=== PATIENT | female | born 1950 | race Caucasian/White ===

== ENCOUNTER 2018-05-03 15:34 | Outpatient (CLI) | payer MEDICARE, OTHER, SELFPAY ==
[2018-05-03 16:41] LABS: TSH (W/Ref FT4) 2.05 uIU/mL (0.358-3.74)
== END 2018-05-03 15:54 ==
DX: R94.6 Abnormal results of thyroid function studies (principal)
CPT/HCPCS: 36415; 84443

== ENCOUNTER 2018-12-28 00:48 | Outpatient (CLI) | payer MEDICARE, OTHER, SELFPAY ==
--- NOTE | 2018-12-28 07:30 | DI.MAMMO_ITS ---
SYMPTOM/DIAGNOSIS: SCREENING, Z12.31 MAMMOGRAMS: Mammograms were interpreted according to the usual protocol including computer analysis with CAD system, tomosynthesis and C view imaging. Comparison is made with prior examinations. Breast density, Category C. There is an asymmetric density in the posterior central left breast seen on the craniocaudad view. This area should be further evaluated with a spot compression view. No other suspicious masses or microcalcifications are seen. There is a biopsy clip again seen in the right breast. CONCLUSION: Additional views of the left breast as described above. Category 0. MQSA ASSESSMENT OF FINDINGS: Incomplete: Needs additional imaging evaluation. Category 0. Patient will receive a letter notifying them of these results. Bi-RADS category C. The breasts are heterogeneously dense, which may obscure small masses.
[2018-12-28 08:51] LABS: ALT 22 U/L (12-78); AST 16 U/L (15-37); Albumin 3.6 g/dL (3.4-5.0); Alkaline Phosphatase 68 U/L (46-116); Anion Gap 8.9 mmol/L (3-11); BUN 18 mg/dL (7-18); Bilirubin, Total 0.2 mg/dL (0.2-1.0); CO2 27.1 mmol/L (21.0-32.0); CREATININE 0.78 mg/dL (0.55-1.02); Calcium 8.9 mg/dL (8.5-10.1); Chloride 102 mmol/L (98-107); Glucose 90 mg/dL (70-100); Potassium 4.3 mmol/L (3.5-5.1); Sodium 138 mmol/L (136-145); TSH (W/Ref FT4) 3.32 uIU/mL (0.358-3.74); Total Protein 6.8 g/dL (6.4-8.2)
== END 2018-12-28 01:08 ==
DX: F32.9 Major depressive disorder, single episode, unspecified (principal); G47.30 Sleep apnea, unspecified; R03.0 Elevated blood-pressure reading, without diagnosis of hypertension; R79.89 Other specified abnormal findings of blood chemistry; Z12.31 Encounter for screening mammogram for malignant neoplasm of breast; R92.8 Other abnormal and inconclusive findings on diagnostic imaging of breast
CPT/HCPCS: 36415; 77063; 77067; 80053; 84443

== ENCOUNTER 2019-01-03 00:43 | Outpatient (CLI) | payer MEDICARE, OTHER, SELFPAY ==
--- NOTE | 2019-01-03 14:35 | DI.MAMMO_ITS ---
SYMPTOM/DIAGNOSIS: F/U MAMMO, ASYMMETRIC DENSITY LT BREAST LEFT BREAST ADDITIONAL VIEWS: Additional images are interpreted according to the usual protocol including tomosynthesis and 2D imaging. CC spot compression view with tomography was performed for question of a nodular asymmetry in the posterior left breast. No persistent abnormality is seen. The findings are consistent with overlying fibroglandular tissue. IMPRESSION: Category 1, negative mammogram. Yearly screening mammography is recommended. SA ASSESSMENT OF FINDINGS: Negative. Category 1. Patient will receive a letter notifying them of these results. Bi-RADS category C. The breasts are heterogeneously dense, which may obscure small masses.
== END 2019-01-03 01:03 ==
DX: Z12.31 Encounter for screening mammogram for malignant neoplasm of breast (principal); R92.8 Other abnormal and inconclusive findings on diagnostic imaging of breast; N64.59 Other signs and symptoms in breast
CPT/HCPCS: 77063; 77067

== ENCOUNTER 2020-01-24 02:09 | Outpatient (CLI) | payer MEDICARE, OTHER, SELFPAY ==
--- NOTE | 2020-01-24 08:15 | DI.US_ITS ---
EXAM: US SOFT TISSUE EXTREMITY CLINICAL HISTORY: evaluate fluid lt wrist, synovial cyst lt wrist, M71.332, R22.9 TECHNIQUE: Ultrasound performed using standard protocol. COMPARISON: US RIGHT BREAST ULTRASOUND from 08/24/2012 FINDINGS: Ultrasound examination of the left wrist was performed to evaluate the extensor region distal to the carpus. There is a palpable abnormality of the extensor surface of the hand which corresponds to an elongated fluid collection which appears to be associated with the extensor digitorum tendons lateral ly. This measures up to about 14 x 5 by 5 millimeters in diameter. No discrete underlying tendinous abnormality seen. IMPRESSION: Fluid collection which appears to be associated with extensor digitorum tendons, most prominent at wh at appears to be the 4th ray. MR correlation may be obtained if clinically appropriate. DATA REPOSITORY:
== END 2020-01-24 02:29 ==
PROVIDERS: Visit Provider Nurse Practitioner Family
DX: M25.532 Pain in left wrist (principal); M71.332 Other bursal cyst, left wrist; M65.842 Other synovitis and tenosynovitis, left hand
CPT/HCPCS: 76881

== ENCOUNTER 2020-03-07 19:01 | Emergency (ER) | payer MEDICARE, OTHER, SELFPAY ==
[2020-03-07 19:06] VITALS: BP 142/85; PULSE 76; RESP 16; TEMP 37.1; O2SAT 99
--- NOTE | 2020-03-07 19:27 | DI.RAD_ITS ---
EXAM: XR HEEL RT OS CALCIS CLINICAL HISTORY: puncture metallic foriegn body, pain TECHNIQUE: COMPARISON: CR LEFT ANKLE COMPLETE from 07/30/2013 FINDINGS: Two views were obtained. No fracture or foreign body is seen. IMPRESSION:
--- NOTE | 2020-03-07 19:33 | DI.VRAD_ITS ---
PROCEDURE INFORMATION: Exam: XR Right Calcaneus Exam date and time: 03/07/2020 7:24 PM Age: 69 years old Clinical indication: Pain; Heel; Right; Patient HX: Stepped on something sharp TECHNIQUE: Imaging protocol: XR of the Right calcaneus. Views: 2 or more views. COMPARISON: CR RIGHT FOOT COMPLETE 05/30/2016 6:17 PM FINDINGS: Bones/joints: No fracture. Hindfoot alignment is normal. No ankle joint effusion. Soft tissues: No foreign body. Soft tissue bandaging over the plantar heel pad noted. IMPRESSION: No fracture or foreign body. Dictated and Authenticated by: Wallace Green MD. Ordering:JOSE MANUEL Rivers MD
--- NOTE | 2020-03-07 20:17 | ED.GENADUL_ITS ---
Discharge Plan Disposition Patient Disposition: HOME Condition: Stable Discharge Details Chief Complaint: Laceration Clinical Impression: Puncture wound of foot, right Primary Care Provider: Rose Carvajal ED Provider: Silvestre Gimenez Home Meds and New Rx's Prescriptions: Continued cetirizine 10 mg tablet 10 mg PO DAILY Qty: 90 RF: 4 metronidazole [MetroLotion] 0.75 % lotion 1 applic Topical DAILY Qty: 59 RF: 1 hydrochlorothiazide 12.5 mg tablet 12.5 mg PO DAILY Qty: 90 RF: 3 Tumeric with black pepper See Rx Instructions .ROUTE .COMPLEX RF: 0 acetaminophen 500 MG tablet 1,000 mg PO DAILY PRNRF: 0 ascorbic acid (vitamin C) 500 MG tablet 500 mg PO BID RF: 0 ibuprofen 200 MG tablet 400 mg PO QID PRNRF: 0 garlic 1 EACH capsule 1 ea PO BID RF: 0 calcium carbonate-vitamin D3 [Calcium 600 + D(3)] 1 EACH tablet 1 ea PO BID RF: 0 GLUCOSAMINE \T\ CHONDROITIN CAP 1 EACH capsule 1 ea PO BID RF: 0 multivitamin [One Daily Multivitamin] 1 EACH tablet 1 ea PO DAILY RF: 0 albuterol sulfate [ProAir HFA] 8.5 GM HFA aerosol inhaler 2 puff Inhalation Q6H PRN PRNQty: 1 RF: 1 citalopram [Celexa] 20 mg tablet 30 mg PO DAILY Qty: 135 RF: 3 Discharge Instructions Instructions: Puncture Wound (ED) Additional Instructions: Please follow-up with podiatry if pain persists after tomorrow. Return to the ER for any worsening or new concerning symptoms. Referrals: Favio Rodriguez DPM [[facility] STAFF PHYSICIAN] - Discharge Data Discharge Date/Time-TO BE ENTERED AT DEPARTURE: 03/07/20 20:30 Medical Decision Making 72-year-old female here with puncture wound to right heel, concern for foreign body. Wound was anesthetized with topical let. X-ray of the right ankle interpreted by radiology: No evidence for acute bony injury, cannot confidently rule out foreign body with bandage overlying skin. I do not see a foreign body on the x-ray. Bedside [id number] ultrasound performed by me to examine soft tissue for foreign body. No hyperechoic foreign body present in soft tissue. Suspect puncture wound without foreign body. Plan for outpatient follow-up with podiatry if pain persists. Usual and customary discharge instructions were provided the patient. HPI General Mode of arrival: ambulatory . Date/Time Provider Initiated Documentation: 03/07/20 19:08 . Limitations to Documentation: no limitations . Information obtained by: patient . HPI Narrative: 69-year-old female presents with chief complaint of foot pain. Patient notes left heel pain that started about 30 minutes prior to arrival. She notes she was walking around her house barefoot and thinks she stepped on a metal splinter as there had recently been metal work done in the area. Pain is mild to moderate with any pressure on her heel. No other injury. Related Data Home Medications Medication Instructions Recorded Confirmed Glucosamine \T\ Chondroitin Cap 1 ea PO BID 06/28/13 03/08/20 acetaminophen 1,000 mg PO DAILY PRN tab-cap 06/28/13 03/08/20 ascorbic acid (vitamin C) 500 mg PO BID 06/28/13 03/08/20 calcium carbonate-vitamin D3 1 ea PO BID tab.chew 06/28/13 03/08/20 [Calcium 600 + D(3)] garlic 1 ea PO BID 06/28/13 03/08/20 ibuprofen 400 mg PO QID PRN tab-cap 06/28/13 03/08/20 multivitamin [One Daily 1 ea PO DAILY 09/26/15 03/08/20 Multivitamin] albuterol sulfate [ProAir HFA] 2 puff INHALATION Q6H PRN PRN #1 05/20/17 03/08/20 inhaler cetirizine 10 mg tablet 10 mg PO DAILY #90 tab-cap 12/06/18 03/08/20 metronidazole 0.75 % lotion 1 applic TOPICAL DAILY #59 ml 12/06/18 03/08/20 hydrochlorothiazide 12.5 mg tablet 12.5 mg PO DAILY #90 tab 05/24/19 03/08/20 citalopram 20 mg tablet 30 mg PO DAILY #135 tab-cap 11/06/19 03/08/20 Tumeric with black pepper See Rx Instructions .ROUTE .COMPLEX 01/17/20 03/08/20 Previous Rx's Medication Instructions Recorded cetirizine 10 mg tablet 10 mg PO DAILY #90 tab-cap 12/06/18 metronidazole 0.75 % lotion 1 applic TOPICAL DAILY #59 ml 12/06/18 hydrochlorothiazide 12.5 mg tablet 12.5 mg PO DAILY #90 tab 05/24/19 citalopram 20 mg tablet 30 mg PO DAILY #135 tab-cap 11/06/19 Allergies Allergy/AdvReac Type Severity Reaction Status Date / Time No Known Allergies Allergy Verified 03/07/20 20:22 General Stated Complaint: Laceration BELINDA: 4 Review of Systems Integumentary/Breasts Skin/Breast: Reports as per [facility] Social History Smoking/Tobacco Use Status: Never Alcohol Intake: current Alcohol Intake frequency: holidays/special occasions only Alcohol type: beer, wine and hard liquor Drug use: Never Substance use type: does not use Caregiver/Support person: No Household members: spouse Housing: house Communication Needs: Corrective Lenses Do you need help understanding health information?: Rarely Pets and animals: Yes Pets and animals: dog(s) Sexually active: No Do you think of yourself as: straight/heterosexual Current gender identity: female What is your relationship status?: How often do you talk on the phone with friends or family?: twice per week How often do you get together with friends or relatives?: twice per week How often do you attend baptist or synagogue services?: 4 or more times per year Do you belong to any clubs or organized social groups?: yes Panel score (0-1 are the most socially isolated patients): 4 What type of physical activity do you participate in: other Duration: decline to answer Frequency: decline to answer Shirley/Congregation: Muslim Special shirley needs: No Seatbelt use: always Drive intox or ride w/intox local company tanker driver: No Do you feel safe at home: Yes Do you feel safe in your relationship?: Yes Exam Const General: cooperative and no acute distress Skin Wounds: wounds noted (tiny puncture wound left heel with no swelling or erthema) Extrem General: no edema Left lower extremity: foot (see skin exam) Details: toes with normal ROM Course Vital Signs Vital signs: Vital Signs Temperature 37.1 C 03/07/20 19:06 Pulse 76 03/07/20 19:06 Respiratory Rate 16 03/07/20 19:06 Blood Pressure 142/85 H 03/07/20 19:06 Pulse Oximetry 99 07/16/20 19:06 Temperature 37.1 C 07/16/20 19:06 Temperature Source Tympanic 03/07/20 19:06 Pulse 76 03/07/20 19:06 Respiratory Rate 16 03/07/20 19:06 Respiratory Effort 03/07/20 19:12 Blood Pressure 142/85 H 03/07/20 19:06 Blood Pressure Position Sitting 03/07/20 19:06 Pulse Oximetry 99 03/07/20 19:06 Oxygen Delivery Method Room Air 03/07/20 19:06 Oxygen Flow Rate 0 03/07/20 19:06
== END 2020-03-07 20:30 | disposition home or self-care (01) ==
PROVIDERS: Emergency Provider Student in an Organized Health Care Education/Training Program
DX: S91.332A Puncture wound without foreign body, left foot, initial encounter (principal); W45.8XXA Other foreign body or object entering through skin, initial encounter
CPT/HCPCS: 99283; 73650; 99284

== ENCOUNTER 2020-03-11 01:44 | Outpatient (CLI) | payer MEDICARE, OTHER, SELFPAY ==
--- NOTE | 2020-03-11 07:30 | DI.RAD_ITS ---
EXAM: XR FINGER LT LITTLE EXAM DATE/TIME: CLINICAL HISTORY: pain and swelling DIP joint,M25.40,R60.9. TECHNIQUE: 2D digital imaging was performed. COMPARISON: None. FINDINGS: BONES: There is a comminuted intra-articular fracture involving the head of the middle phalanx of the left little finger. There is depression of the lateral fracture fragment. No bony destructive lesi on is seen. JOINTS: No dislocation is present. SOFT TISSUE: There is soft tissue swelling of the left little finger. IMPRESSION: Comminuted, depressed intra-articular fracture of the head of the middle phalanx of the left little f nehal. DATA REPOSITORY: RADIATION DOSE DELIVERED:
--- NOTE | 2020-03-11 07:30 | DI.RAD_ITS ---
EXAM: XR FINGER LT RING EXAM DATE/TIME: CLINICAL HISTORY: PAIN, SWELLING DIP JOINT, M25.40,R60.9. TECHNIQUE: 2D digital imaging was performed. COMPARISON: None. FINDINGS: BONES: There is a short curvilinear density seen at the ulnar aspect of the distal phalanx of the lef t ring finger which may represent a small avulsed fracture fragment. No bony destructive lesion is s een. JOINTS: No dislocation is present. SOFT TISSUE: Mild soft tissue swelling of the left ring finger. IMPRESSION: Curvilinear density adjacent to the ulnar aspect of the distal phalanx of the left ring finger which may represent a small avulsed fracture fragment. Please correlate clinically. DATA REPOSITORY: RADIATION DOSE DELIVERED:
== END 2020-03-11 02:04 ==
PROVIDERS: Visit Provider Nurse Practitioner Family
DX: M25.40 Effusion, unspecified joint (principal); R60.9 Edema, unspecified; S62.627A Displaced fracture of middle phalanx of left little finger, initial encounter for closed fracture; R93.6 Abnormal findings on diagnostic imaging of limbs; X58.XXXA Exposure to other specified factors, initial encounter
CPT/HCPCS: 73140

== ENCOUNTER → 2020-04-26 09:18 | Outpatient (BNVA) | payer MEDICARE, OTHER, SELFPAY | PROVIDERS: Visit Provider Student in an Organized Health Care Education/Training Program | DX: S62.627A Displaced fracture of middle phalanx of left little finger, initial encounter for closed fracture (principal); X58.XXXA Exposure to other specified factors, initial encounter; M67.432 Ganglion, left wrist; G56.02 Carpal tunnel syndrome, left upper limb; I10 Essential (primary) hypertension | CPT/HCPCS: 99203; 99214 ==

== ENCOUNTER 2020-05-06 03:04 | Outpatient (CLI) | payer MEDICARE, OTHER, SELFPAY ==
[2020-05-06 09:37] LABS: ALT 17 U/L (14-59); AST 14 U/L (15-37); Albumin 3.4 g/dL (3.4-5.0); Alkaline Phosphatase 60 U/L (46-116); Anion Gap 9.4 mmol/L (3-11); BUN 23 mg/dL (7-18); Bilirubin, Total 0.1 mg/dL (0.2-1.0); CO2 27.6 mmol/L (21.0-32.0); CREATININE 0.85 mg/dL (0.55-1.02); Calcium 8.7 mg/dL (8.5-10.1); Calculated LDL 148 mg/dL (<100); Chloride 103 mmol/L (98-107); Cholesterol 210 mg/dL (<200); Glucose 97 mg/dL (74-106); HDL Cholesterol 40 mg/dL (40-60); Potassium 4.1 mmol/L (3.5-5.1); Sodium 140 mmol/L (136-145); Total Protein 6.3 g/dL (6.4-8.2); Triglyceride 114 mg/dL (<150)
== END 2020-05-06 03:24 ==
DX: I10 Essential (primary) hypertension (principal); E78.00 Pure hypercholesterolemia, unspecified; K21.9 Gastro-esophageal reflux disease without esophagitis; F32.9 Major depressive disorder, single episode, unspecified; G47.30 Sleep apnea, unspecified
CPT/HCPCS: 36415; 80053; 80061

== ENCOUNTER 2020-05-14 21:31 | Outpatient (REF) | payer MEDICARE, OTHER, SELFPAY | END 2020-05-14 21:51 | LOC: LBN 21:31 | PROVIDERS: Visit Provider Physician Assistant | DX: N39.0 Urinary tract infection, site not specified (principal) | CPT/HCPCS: 87077; 87086; 87186 ==

== ENCOUNTER 2020-07-15 05:57 | Outpatient (REF) | payer MEDICARE, OTHER, SELFPAY ==
[2020-07-18 07:50] LABS: Patient Race White; SARS-CoV-2 RNA Undetected (Undetected); SARS-CoV-2 Specimen Source Nasal
== END 2020-07-15 06:17 ==
LOC: NCHCN 05:57
PROVIDERS: Visit Provider Nurse Practitioner Family
DX: Z11.59 Encounter for screening for other viral diseases (principal)
CPT/HCPCS: U0003

== ENCOUNTER 2020-08-02 21:23 | Outpatient (REF) | payer MEDICARE, OTHER, SELFPAY | END 2020-08-02 21:43 | LOC: LBN 21:23 | PROVIDERS: Visit Provider Nurse Practitioner Family | DX: N39.0 Urinary tract infection, site not specified (principal) | CPT/HCPCS: 87077; 87086; 87186 ==

== ENCOUNTER 2021-05-13 01:24 | Outpatient (CLI) | payer MEDICARE, OTHER, SELFPAY ==
[2021-05-13 09:33] LABS: ALT 25 U/L (14-59); AST 11 U/L (15-37); Albumin 3.6 g/dL (3.4-5.0); Alkaline Phosphatase 63 U/L (46-116); Anion Gap 9.4 mmol/L (3-11); BUN 18 mg/dL (7-18); Bilirubin, Total 0.3 mg/dL (0.2-1.0); CO2 28.6 mmol/L (21.0-32.0); CREATININE 0.7 mg/dL (0.55-1.02); Calcium 8.7 mg/dL (8.5-10.1); Calculated LDL 151 mg/dL (<100); Chloride 101 mmol/L (98-107); Cholesterol 214 mg/dL (<200); Glucose 85 mg/dL (74-106); HDL Cholesterol 46 mg/dL (40-60); Sodium 139 mmol/L (136-145); Total Protein 6.7 g/dL (6.4-8.2); Triglyceride 87 mg/dL (<150)
== END 2021-05-13 01:25 | disposition home or self-care (01) ==
LOC: LBO 01:24
DX: I10 Essential (primary) hypertension (principal); E78.00 Pure hypercholesterolemia, unspecified
CPT/HCPCS: 36415; 80053; 80061

== ENCOUNTER 2021-05-27 02:36 | Outpatient (CLI) | payer MEDICARE, OTHER, SELFPAY ==
--- NOTE | 2021-05-27 06:30 | DI.RAD_ITS ---
Exam(s) XR KNEE RT 3V AP,LAT,PARRISH EXAM: XR KNEE RT 3V AP,LAT,PARRISH CLINICAL HISTORY: knee pain, right with mild edema,. TECHNIQUE: 2D digital imaging was performed of the right knee. Three views obtained. AP, lateral an d PA tunnel views were obtained. COMPARISON: No exams were available for comparison FINDINGS: BONES: No acute fracture is present. No bony destructive lesion is seen. JOINTS: The knee is normally aligned. No joint effusion is seen. Small osteophytes at the posterior p atella. SOFT TISSUE: Normal. IMPRESSION: Mild degenerative changes at the patellofemoral joint. DATA REPOSITORY: RADIATION DOSE DELIVERED:
== END 2021-05-27 02:56 ==
DX: M25.561 Pain in right knee (principal); M17.11 Unilateral primary osteoarthritis, right knee
CPT/HCPCS: 73562

== ENCOUNTER 2022-06-24 09:51 | Outpatient (REF) | payer MEDICARE, OTHER, SELFPAY ==
[2022-06-24 11:29] LABS: C Diff PCR Negative (Negative)
[2022-06-24 23:32] LABS: Campylobacter PCR Negative (Negative); Salmonella PCR Negative (Negative); Shiga Toxin PCR Negative (Negative); Shigella/Enteroinvasive Ecoli Negative (Negative)
--- OUTSIDE RECORDS SUMMARY | 2022-06-30 09:59 | XMS_ITS | Encounter Summary ---
:1950 Author Organization [facility] [place] [address] Care Team Providers Name Role Phone Hodan Hunt Primary Care Provider Encounter Details Date Type Department Care Team Description 02/05/2011 Orders Only [facility] [facility] MD Prashant (Primary Dx) [facility] [address] [place] GENERAL SURGERY [id number] [place] [address] [phone] Social History Tobacco Use Types Packs/Day Years Used Date Never Assessed Sex Assigned at Date Recorded Not on file documented as of this encounter Plan of Treatment Not on filedocumented as of this encounter Visit Diagnoses Diagnosis Breast fibroadenoma - Primary Benign neoplasm of breast documented in this encounter Care Teams Knitter Wire Mesh Relationship Specialty Start Date End Date Hodan Hunt PA PCP - General 08/20/10 04/06/11 documented as of this encounter
--- OUTSIDE RECORDS SUMMARY | 2022-06-30 09:59 | XMS_ITS | Encounter Summary ---
:1950 Author Organization [facility] Address [place] [id number] Care Team Providers Name Role Phone Jeri Bolivar MD Primary Care Provider Reason for Visit Reason Comments Obstructive Sleep Apnea Encounter Details Date Type Department Care Team Description 11/10/2011 Office Visit Sleep Medicine ODETTE Kee on CPAP (Primary [facility] Denisse Aleman APRN Dx) [place] [id number] PSYCHIATRY DEPT. [place] [id number] Social History Tobacco Use Types Packs/Day Years Used Date Never Smoker Sex Assigned at Date Recorded Not on file documented as of this encounter Last Filed Vital Signs Vital Sign Reading Time Taken Comments Blood Pressure 118/78 11/10/2011 9:50 AM EDT Pulse 71 11/10/2011 9:50 AM EDT Temperature - - Respiratory Rate - - Oxygen Saturation - - Inhaled Oxygen Concentration - - Weight 71.2 kg (157 lb) 11/10/2011 9:50 AM EDT Height 156.8 cm (5' 1.75) 11/10/2011 9:50 AM EDT Body Mass Index 28.95 11/10/2011 9:50 AM EDT documented in this encounter Progress Notes Denisse Kee APRN - 11/10/2011 10:32 AM EDT Report of Outpatient Follow up: History of Present Illness: A 61-year-old female with a history of moderate degree of obstructive sleep apnea (AHI of 40.1) diagnosed by polysomnogram on 05/31/2009. CPAP titration revealed pressures of 12 and 14 produced overallrespiratory stability. Her respiratory pattern was noted to have some decreased stability in non REMversus REM. At the last pressure studied, 14 cm H2O, she was seen mostly in REM with only a few minutes of non REM. Respiratory pattern appeared good in both, although slightly worse in non REM. She was supine for most of the study. She was last seen in June 2010, at which time she was refit for aQuattro FFM, size XS. CPap pressure was reset to an auto-range of 14-18cm H2o. She phoned in July 2011, at which time her AHI had worsened since her last appt. She opted, though, to maintain her pressure 'as is'. Pt presents today for a routine f/up; she is appreciating the comfort of the FFM, no longer has to set up a sock system to enhance fit, though is using a white T-shirt template. Her continues to express satisfaction since she is using CPAP, no longer snoring while using her mask/machine. On the other hand, he has noted occasional episodes of apnea while she is using her machine. In general, she feels refreshed upon awakening and notes good daytime energy through the bulk of herworkweek. Nasal congestion not an issue, denies excess dry mouth. She is no longer experiencing aerophagia/gas- no longer needing to use Beano twice daily. 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 Current Compliance Download (covers 05/14/11- 11/09/11) indicates: AHI= 5.4 , avg daily use= 6'36, avg vibratory snore index= 0.8, avg leak= 47.9. Today's [place] Score is 9/24, indicating min-mod daytime sleepiness. She strongly asserts that she is safe behind the wheel- this is greatly improved. Current Sleep Habitus: Typically to bed around 11p, she will FFM, then will get into bed in supine position. She is asleep promptly, then sleeps right thru the night. She awakens at 6 a, generally feels refreshed. Physical Examination: Pt is a 61 y.o. female , avg ht, current weight is 157 lbs, indicating no change in her weight over the past year. Pt is pleasant, coop and in NAD. ACTIVE PROBLEM LIST ODETTE Assessment: Pt Continues to do quite well with her CPap, though her pressure needs vary at times; I believe thatthis has contributed to the slightly higher AHI and her subjective sense of mild sleepiness at times. As a result will increase her auto-range pressure to 14-19cm H2o at this time, will RTC 1 yr/PRN. ICSD diagnosis (code): 327.23 Provisional: Final: Obstructive sleep apnea Recommendations: 1. CPap at __ cm H2O with/without ramp, and heated humidifier 2. Reviewed driving safety; pt is encouraged to tube puller and nap if feeling unsafe behind the wheelat any time. 3. RTC documented in this encounter Plan of Treatment Not on filedocumented as of this encounter Visit Diagnoses Diagnosis ODETTE on CPAP - Primary Obstructive sleep apnea (adult) (pediatr ic) documented in this encounter Care Teams Smasher Hand Relationship Specialty Start Date End Date Jeri Bolivar MD PCP - General 04/07/11 [address] [place] [address] documented as of this encounter
--- OUTSIDE RECORDS SUMMARY | 2022-06-30 09:59 | XMS_ITS | Encounter Summary ---
:1950 Author Organization [facility] Address [address] [place] [id number] Care Team Providers Name Role Phone Unavailable Primary Care Provider Unavailable Encounter Details Date Type Department Care Team Description 06/24/2022 Lab Requisition [facility] Outr Resulting Lab, Pathology & Laboratory Provider [facility] [address] [place] [address] Social History Tobacco Use Types Packs/Day Years Used Date Smoking Tobacco: Never Assessed Sex Assigned at Date Recorded Not on file documented as of this encounter Plan of Treatment Not on filedocumented as of this encounter Procedures Procedure Name Priority Date/Time Associated Diagnosis Comme nts FECAL BACTERIAL Routine 06/24/2022 9:50 EDT Resul ts for this PATHOGENS BY PCR procedure a re in the results section. OVA/PARASITE EXAM Routine 06/24/2022 9:50 EDT Res ults for this procedure are i n the results section. documented in this encounter Results FECAL BACTERIAL PATHOGENS BY PCR (06/24/2022 9:50 EDT) [facility] Method Time Signature Salmonella PCR Negative Negative 06/24/2022 [facility] MEDICAL 23:26 EDT CENTER LABORATORY SERVICES Shigella/Enteroin Negative Negative 06/24/2022 [facility] vasive E. coli 23:26 EDT CENTER LABORATORY SERVICES HN LAB Negative Negative 06/24/2022 [facility] PCR 23:26 EDT CENTER LABORATORY SERVICES Shiga Toxin PCR Negative Negative 06/24/2022 [facility] MEDICAL 23:26 EDT CENTER LABORATORY SERVICES Specimen Anatomical Collection Method Collection Time Receive d Time (Source) Location / / Volume Laterality Feces SPECIMEN FROM 06/24/2022 9:50 06/24/2022 [facility] / Unknown EDT 16:13 EDT Provider Outr Resulting Lab MICROBIOLOGY - GENERAL ORD ERABLES Performing Organization Address City/State/ZIP Code Phon e Number [facility] [address] [place] [address] SERVICES OVA/PARASITE EXAM (06/24/2022 9:50 EDT) [facility] Method Time Signature Parasite No ova and 06/25/2022 [facility] MEDICAL parasites 13:07 EDT CENTER seen. LABORATORY SERVICES Specimen Anatomical Collection Method Collection Time Receive d Time (Source) Location / / Volume Laterality Feces SPECIMEN FROM 06/24/2022 9:50 06/24/2022 [facility] / Unknown EDT 16:13 EDT Narrative [facility] SERVICES - 06/25/2022 13:07 EDT (If Cryptosporidium, Cyclospora, or Micr osporidium are suspected, specific tests must be requested.) Single negative specimen does not rule out the possibility of a parasitic infection. Provider Outr Resulting Lab MICROBIOLOGY - GENERAL ORD ERABLES Performing Organization Address City/State/ZIP Code Phon e Number [facility] [address] [place] [address] SERVICES documented in this encounter Visit Diagnoses Not on filedocumented in this encounter
--- OUTSIDE RECORDS SUMMARY | 2022-06-30 09:59 | XMS_ITS | Clinical Summary ---
:1950 Author Organization [facility] Address [address] [place] [address] Care Team Providers Name Role Phone Unavailable Primary Care Provider Unavailable Encounters Date Type Specialty Care Team Description 06/24/2022 Lab Requisition Clinical Laboratory Outr Resulting Lab , Provider from Last 3 Months Social History Tobacco Use Types Packs/Day Years Used Date Smoking Tobacco: Never Assessed Sex Assigned at Date Recorded Not on file Plan of Treatment Health Maintenance Due Date Last Done Comments Hepatitis C Screen 1950 COVID-19 Vaccine (#1) 02/19/1951 Fall Risk Screening 2017 Procedures Procedure Name Priority Date/Time Associated Diagnosis Comme nts FECAL BACTERIAL Routine 06/24/2022 9:50 EDT Resul ts for this PATHOGENS BY PCR procedure a re in the results section. OVA/PARASITE EXAM Routine 06/24/2022 9:50 EDT Res ults for this procedure are i n the results section. from Last 3 Months Results FECAL BACTERIAL PATHOGENS BY PCR (06/24/2022 9:50 EDT) [facility] Method Time Signature Salmonella PCR Negative Negative 06/24/2022 [facility] MEDICAL 23:26 EDT CENTER LABORATORY SERVICES Shigella/Enteroin Negative Negative 06/24/[address] [facility] vasive E. coli 23:26 EDT CENTER LABORATORY SERVICES HN LAB Negative Negative 06/24/[address] [facility] PCR 23:26 EDT CENTER LABORATORY SERVICES Shiga Toxin PCR Negative Negative 06/24/2022 [facility] MEDICAL 23:26 EDT CENTER LABORATORY SERVICES Specimen Anatomical Collection Method Collection Time Receive d Time (Source) Location / / Volume Laterality Feces SPECIMEN FROM 06/24/2022 9:50 06/24/2022 [facility] / Unknown EDT 16:13 EDT Provider Outr Resulting Lab MICROBIOLOGY - GENERAL ORD ERABLES Performing Organization Address City/State/ZIP Code Phon e Number [facility] [address] [place] [address] SERVICES OVA/PARASITE EXAM (06/24/2022 9:50 EDT) [facility] Method Time Signature Parasite No ova and 06/25/2022 [facility] MEDICAL parasites 13:07 EDT CENTER seen. LABORATORY SERVICES Specimen Anatomical Collection Method Collection Time Receive d Time (Source) Location / / Volume Laterality Feces SPECIMEN FROM 06/24/2022 9:50 06/24/2022 [facility] / Unknown EDT 16:13 EDT Narrative [facility] SERVICES - 06/25/2022 13:07 EDT (If Cryptosporidium, Cyclospora, or Micr osporidium are suspected, specific tests must be requested.) Single negative specimen does not rule out the possibility of a parasitic infection. Provider Outr Resulting Lab MICROBIOLOGY - GENERAL ORD ERABLES Performing Organization Address City/State/ZIP Code Phon e Number [facility] [address] [place] [address] SERVICES from Last 3 Months
--- OUTSIDE RECORDS SUMMARY | 2022-06-30 09:59 | XMS_ITS | Encounter Summary ---
:1950 Author Organization [facility] [place] [address] Care Team Providers Name Role Phone Hodan Hunt Primary Care Provider Encounter Details Date Type Department Care Team Description 04/01/2011 Orders Only Radiology Merle Figueroa, Lump or mass in breast; [facility] Abnormal [place] [address] DIAGNOSTIC RADIOLOGY [phone] [place], [place] [address] (Wo rk) Social History Tobacco Use Types Packs/Day Years Used Date Never Assessed Sex Assigned at Date Recorded Not on file documented as of this encounter Plan of Treatment Not on filedocumented as of this encounter Results Mammo direct digital unilateral (04/07/2011 12:12 PM EDT) Anatomical Region Laterality Modality Breast N/A Mammography Specimen (Source) Anatomical Collection Method Collection Time Re ceived Time Location / / Volume Laterality 04/07/2011 12:12 PM EDT Impressions 04/10/2011 9:24 AM EDT Impression: concordant Recommendation: Follow-up US in one year . ??Dr. Figueroa notified Ms. Martinez of results as I was out of town. Dr. Raman Daigle performed the procedure ; I (Dr. Banuelos) observed and also performed one biopsy and clip placement. Film and interpretation reviewed by the attending Narrative 04/10/2011 9:24 AM EDT ULTRASOUND GUIDED BIOPSY OF THE RIGHT BR EAST ON 04/07/11: Informed consent was obtained, sterile t echnique and 1% lidocaine used for local anesthesia and ultrasound guidance used throughout the procedure. ?? Clinical indication: Right breast 11mm m ass in the upper, outer quadrant at 0930, 1cm from the nipple. 14-gauge Achieve device 4 core biopsy specimens obtained. ??The mass appeared to decrease/resolve with biopsies. ?? A 17-gauge Ultracore (US) [place] marker c lip was placed. Cranio-caudal and lateral digital mammography performed to determine biopsy marker placement, which was shown to be at the biopsy site . Satisfactory sampling was obtained. There were no procedural complications. Imaging diagnosis: Cyst versus papilloma versus, less likely, mucinous carcinoma. Pathologic diagnosis: Cyst Procedure Note Bobby Banuelos MD - 04/10/2011Format ting of this note might be different from the original. ULTRASOUND GUIDED BIOPSY OF THE RIGHT BR EAST ON 04/07/11: Informed consent was obtained, sterile t echnique and 1% lidocaine used for local anesthesia and ultrasound guidance used throughout the procedure. Clinical indication: Right breast 11mm m ass in the upper, outer quadrant at 0930, 1cm from the nipple. 14-gauge Achieve device 4 core biopsy specimens obtained. The ma ss appeared to decrease/resolve with biopsies. A 17-gauge Ultracore (US) [place] marker c lip was placed. Cranio-caudal and lateral digital mammography performed to determine biopsy marker placement, which was shown to be at the biopsy site . Satisfactory sampling was obtained. There were no procedural complications. Imaging diagnosis: Cyst versus papilloma versus, less likely, mucinous carcinoma. Pathologic diagnosis: Cyst IMPRESSION Impression: concordant Recommendation: Follow-up US in one year . Dr. Figueroa notified Ms. Martinez of results as I was out of town. Dr. Raman Daigle performed the procedure ; I (Dr. Banuelos) observed and also performed one biopsy and clip placement. Film and interpretation reviewed by the attending Merle Figueroa MD IMG MAMMO ORDERABLES Mammo- US biopsy (04/07/2011 12:09 PM EDT) Anatomical Region Laterality Modality Breast N/A Mammography Specimen (Source) Anatomical Collection Method Collection Time Re ceived Time Location / / Volume Laterality 04/07/2011 12:09 PM EDT Impressions 04/10/2011 9:24 AM EDT Impression: concordant Recommendation: Follow-up US in one year . ??Dr. Figueroa notified Ms. Martinez of results as I was out of town. Dr. Raman Daigle performed the procedure ; I (Dr. Banuelos) observed and also performed one biopsy and clip placement. Film and interpretation reviewed by the attending Narrative 04/10/2011 9:24 AM EDT ULTRASOUND GUIDED BIOPSY OF THE RIGHT BR EAST ON 04/07/11: Informed consent was obtained, sterile t echnique and 1% lidocaine used for local anesthesia and ultrasound guidance used throughout the procedure. ?? Clinical indication: Right breast 11mm m ass in the upper, outer quadrant at 0930, 1cm from the nipple. 14-gauge Achieve device 4 core biopsy specimens obtained. ??The mass appeared to decrease/resolve with biopsies. ?? A 17-gauge Ultracore (US) [place] marker c lip was placed. Cranio-caudal and lateral digital mammography performed to determine biopsy marker placement, which was shown to be at the biopsy site . Satisfactory sampling was obtained. There were no procedural complications. Imaging diagnosis: Cyst versus papilloma versus, less likely, mucinous carcinoma. Pathologic diagnosis: Cyst Procedure Note Bobby Banuelos MD - 04/10/2011Format ting of this note might be different from the original. ULTRASOUND GUIDED BIOPSY OF THE RIGHT BR EAST ON 04/07/11: Informed consent was obtained, sterile t echnique and 1% lidocaine used for local anesthesia and ultrasound guidance used throughout the procedure. Clinical indication: Right breast 11mm m ass in the upper, outer quadrant at 0930, 1cm from the nipple. 14-gauge Achieve device 4 core biopsy specimens obtained. The ma ss appeared to decrease/resolve with biopsies. A 17-gauge Ultracore (US) [place] marker c lip was placed. Cranio-caudal and lateral digital mammography performed to determine biopsy marker placement, which was shown to be at the biopsy site . Satisfactory sampling was obtained. There were no procedural complications. Imaging diagnosis: Cyst versus papilloma versus, less likely, mucinous carcinoma. Pathologic diagnosis: Cyst IMPRESSION Impression: concordant Recommendation: Follow-up US in one year . Dr. Figueroa notified Ms. Martinez of results as I was out of town. Dr. Raman Daigle performed the procedure ; I (Dr. Banuelos) observed and also performed one biopsy and clip placement. Film and interpretation reviewed by the attending Merle Figueroa MD IMG MAMMO ORDERABLES documented in this encounter Visit Diagnoses Diagnosis Lump or mass in breast Abnormal ultrasound of breast Other (abnormal) findings on radiologica l examination of breast Lump or mass in breast Abnormal ultrasound of breast Other (abnormal) findings on radiologica l examination of breast Lump or mass in breast Abnormal ultrasound of breast Other (abnormal) findings on radiologica l examination of breast documented in this encounter Care Teams Gusset Folder Relationship Specialty Start Date End Date Hodan Hunt PA PCP - General 08/20/10 04/06/11 documented as of this encounter
--- OUTSIDE RECORDS SUMMARY | 2022-06-30 09:59 | XMS_ITS | Clinical Summary ---
:1950 Author Organization [facility] [place] [address] Care Team Providers Name Role Phone Jeri Bolivar MD Primary Care Provider Allergies Active Allergy Reactions Severity Noted Date Comments Pollen Extracts Medium CIS - Allerg ic Rhinitis Pollen, Micronized Medium CIS - All ergic Rhinitis Pollen,Fermented Medium CIS - Aller gic Rhinitis Medications Medication Sig Dispensed Refills Start Date End Date Status citalopram (CELEXA) 20 0 11/11/2010 Active mg tablet cetirizine (ZYRTEC) 10 10MG, PO, Once 0 11/11/2010 Active mg tablet daily GLUCOSAMINE HCL/CHONDRO 0 11/11/2010 Active BALLARD A (GLUCOSAMINE-CHONDROITIN ORAL) ASCORBIC ACID (VITAMIN C 0 11/11/2010 Active ORAL) metroNIDAZOLE 0 11/11/2010 Activ e (METROCREAM) 0.75 % cream Calcium 500 mg Tab 0 11/11/2010 Active omeprazole (PRILOSEC) 20 0 11/11/2010 Active mg capsule VITAMIN B COMPLEX (B 0 11/11/2010 Active COMPLEX VITAMINS ORAL) Coenzyme Q10 (CO Q-10) 0 11/11/2010 Active 200 mg Cap multivitamin (THERAGRAN) 0 11/11/2010 Active tablet Immunizations Name Administration Dates Next Due Influenza Vaccine, Whole 08/20/2010, 06/25/2005 Td, adult 11/06/2003 Tuberculin Skin Test, PPD 05/31/2012, 05/18/2012, 02/05/2003 Social History Tobacco Use Types Packs/Day Years Used Date Never Smoker Sex Assigned at Date Recorded Not on file Last Filed Vital Signs Vital Sign Reading [...] Mass Index 28.95 11/10/2011 9:50 AM EDT Plan of Treatment Health Maintenance Due Date Last Done Comments Covid-19 Vaccine (#1) 02/19/1951 Hepatitis C Screening 1970 Tdap adult 1971 Breast Cancer Share Decision Needed 1992 Breast Cancer screening 2002 Zoster vaccine (1 of 2) 2002 Advance Directive 2007 Tetanus vaccine 11/05/2013 11/06/2003 Colonoscopy 01/14/2015 01/14/2005 (See prior EHR) Bone Density Scan 2017 Pneumoccocal Vaccine: 65+ (1 - PCV) 2017 Influenza (Flu) vaccine (1 of 1 - 04/23/2022 08/20/2010, Influenza standard series) Care Teams Ward Assistant Relationship Specialty Start Date End Date Jeri Bolivar MD PCP - General 04/07/11 [address] [place], [place] [address]
--- OUTSIDE RECORDS SUMMARY | 2022-06-30 09:59 | XMS_ITS | Encounter Summary ---
:1950 Author Organization [facility] [place] [address] Care Team Providers Name Role Phone Jeri Bolivar MD Primary Care Provider Reason for Visit Reason Onset Date Comments Other 08/04/2011 Encounter Details Date Type Department Care Team Description 08/04/2011 Telephone Sleep Medicine Denisse Kee, Other [facility] [place] [address] [facility] [phone] PSYCHIATRY DEPT. [place] [phone] (Wo rk) Social History Tobacco Use Types Packs/Day Years Used Date Never Assessed Sex Assigned at Date Recorded Not on file documented as of this encounter Miscellaneous Notes Telephone Encounter - Denisse Kee APRN - 09/01/2011 12:38 PM EST Can you call the [facility] Medical office to ask them to RE-fax her compliance download? Apparently they did this on 08/04/11, but I haven't seen it yet. Forwarding this request to Leah again, since she took the call from Carina, but if anyone else is more appropriate, feel free to pawn the task off on someone else (other than myself! Benny) thanks Telephone Encounter - Merle Unger - 09/01/2011 9:49 AM EST Doing better with new mask and thinks pressure is okay. She had download faxed too. Does she need tokeep next tue appt? documented in this encounter Plan of Treatment Not on filedocumented as of this encounter Visit Diagnoses Not on filedocumented in this encounter Care Teams Passenger Vessel Chef Relationship Specialty Start Date End Date Jeri Bolivar MD PCP - General 04/07/11 [address] [place] [address] documented as of this encounter
--- OUTSIDE RECORDS SUMMARY | 2022-06-30 09:59 | XMS_ITS | Encounter Summary ---
:1950 Author Organization [facility] [place] [address] Care Team Providers Name Role Phone Hodan Hunt Primary Care Provider Encounter Details Date Type Department Care Team Description 03/17/2011 Orders Only [facility] MD Prashant Dx) [facility] [place] [address] GENERAL SURGERY [phone] [place] [id number] Social History Tobacco Use Types Packs/Day Years Used Date Never Assessed Sex Assigned at Date Recorded Not on file documented as of this encounter Plan of Treatment Not on filedocumented as of this encounter Procedures Procedure Name Priority Date/Time Associated Diagnosis Comme nts MAMMO BREAST US Routine 04/01/2011 2:00 PM Breast cancer Resul ts for this LIMITED EDT procedure are i n the results section. documented in this encounter Results Mammo breast US unilateral bilateral (04/01/2011 2:00 PM EDT) Anatomical Region Laterality Modality Breast N/A Mammography Specimen (Source) Anatomical Collection Method Collection Time Re ceived Time Location / / Volume Laterality 04/01/2011 2:00 PM EDT Narrative 04/01/2011 4:04 PM EDT DIAGNOSTIC VIEWS OF THE RIGHT BREAST AND RIGHT BREAST ULTRASOUND ON 04/01/11: DIAGNOSTIC IMAGING SUMMARY: RIGHT BREAST LESION 1: SUSPICIOUS (BIRAD S Category 4A-low concern for malignancy). Finding: Hypoechoic mass. Size: 13mm. Location: 0900 position, 1-2cm from the nipple. Recommendation: Tissue diagnosis as disc ussed with the patient by Dr. Figueroa at the time of the exam. This has been sche duled for 04/07/11 at 10:50am. Differential diagnosis: Intraductal kalie lloma versus fibroadenoma or, less likely, fat lobule. Preliminary report E-mailed to Dr. Rebeca Wheat on 04/01/11. NARRATIVE: CLINICAL INDICATION: Patient with ongoin g nipple discharge. TECHNIQUE: CC, MLO, spot compression CC and ML views were obtained with direct digital capture as well as a Right breas t ultrasound. FINDINGS: Diagnostic views demonstrate a stable heterogeneously dense fibroglandular tissue pattern with no co ncerning masses, distortion or worrisome calcifications. Ultrasound was performed throughout the retroareolar region revealing no dilated ducts. At the 2462-1897 position , 1-2cm from the nipple is a persistent hypoechoic, well circumscribed mass.. On prior imaging it sometimes appeared like a fat lobule and other times blende d into tissue. On today's imaging it appears better circumscribed and has enl arged with a maximum dimension of 13mm. Upon careful scanning there is the sugge stion that it may be connected to the duct system; however, there is no training intern al vascularity. There is a hyperechoic well defined rim representing the duct w all or pseudocapsule. There is neutral through transmission. The mass is parall el in orientation and well circumscribed. Procedure Note Merle Figueroa MD - 04/01/2011Format ting of this note might be different from the original. DIAGNOSTIC VIEWS OF THE RIGHT BREAST AND RIGHT BREAST ULTRASOUND ON 04/01/11: DIAGNOSTIC IMAGING SUMMARY: RIGHT BREAST LESION 1: SUSPICIOUS (BIRAD S Category 4A-low concern for malignancy). Finding: Hypoechoic mass. Size: 13mm. Location: 0900 position, 1-2cm from the nipple. Recommendation: Tissue diagnosis as disc ussed with the patient by Dr. Figueroa at the time of the exam. This has been sche duled for 04/07/11 at 10:50am. Differential diagnosis: Intraductal kalie lloma versus fibroadenoma or, less likely, fat lobule. Preliminary report E-mailed to Dr. Rebeca Wheat on 04/01/11. NARRATIVE: CLINICAL INDICATION: Patient with ongoin g nipple discharge. TECHNIQUE: CC, MLO, spot compression CC and ML views were obtained with direct digital capture as well as a Right breas t ultrasound. FINDINGS: Diagnostic views demonstrate a stable heterogeneously dense fibroglandular tissue pattern with no co ncerning masses, distortion or worrisome calcifications. Ultrasound was performed throughout the retroareolar region revealing no dilated ducts. At the 9807-4349 position , 1-2cm from the nipple is a persistent hypoechoic, well circumscribed mass.. On prior imaging it sometimes appeared like a fat lobule and other times blende d into tissue. On today's imaging it appears better circumscribed and has enl arged with a maximum dimension of 13mm. Upon careful scanning there is the sugge stion that it may be connected to the duct system; however, there is no training intern al vascularity. There is a hyperechoic well defined rim representing the duct w all or pseudocapsule. There is neutral through transmission. The mass is parall el in orientation and well circumscribed. Peter Wheat MD IMG MAMMO ORDERABLES documented in this encounter Visit Diagnoses Diagnosis Breast cancer - Primary Malignant neoplasm of breast (female), u nspecified site documented in this encounter Care Teams Barber Shop Manager Relationship Specialty Start Date End Date Hodan Hunt PA PCP - General 08/20/10 04/06/11 documented as of this encounter
--- OUTSIDE RECORDS SUMMARY | 2022-06-30 09:59 | XMS_ITS | Encounter Summary ---
:1950 Author Organization [facility] [place] [address] Care Team Providers Name Role Phone Hodan Hunt Primary Care Provider Encounter Details Date Type Department Care Team Description 09/03/2010 Follow-Up Hematology and Oncol shelby at [facility] [place] [address] Social History Tobacco Use Types Packs/Day Years Used Date Never Assessed Sex Assigned at Date Recorded Not on file documented as of this encounter Plan of Treatment Not on filedocumented as of this encounter Visit Diagnoses Not on filedocumented in this encounter Care Teams Communications And Signals Supervisor Relationship Specialty Start Date End Date Hodan Hunt PA PCP - General 08/20/10 04/06/11 documented as of this encounter
--- OUTSIDE RECORDS SUMMARY | 2022-06-30 09:59 | XMS_ITS | Encounter Summary ---
:1950 Author Organization [facility] [address] Care Team Providers Name Role Phone Hodan Hunt Primary Care Provider Encounter Details Date Type Department Care Team Description 09/03/2010 Procedure [place] [address] Social History Tobacco Use Types Packs/Day Years Used Date Never Assessed Sex Assigned at Date Recorded Not on file documented as of this encounter Plan of Treatment Not on filedocumented as of this encounter Visit Diagnoses Not on filedocumented in this encounter Care Teams Auto Radiator Specialist Relationship Specialty Start Date End Date Hodan Hunt PA PCP - General 08/20/10 04/06/11 documented as of this encounter
--- OUTSIDE RECORDS SUMMARY | 2022-06-30 09:59 | XMS_ITS | Encounter Summary ---
:1950 Author Organization [facility] [place] [address] Care Team Providers Name Role Phone Jeri Bolivar MD Primary Care Provider Encounter Details Date Type Department Care Team Description 04/07/2011 Orders Only Radiology Bobby Banuelos MD [facility] [place] [address] DIAGNOSTIC RADIOLOGY [phone] [place] [phone] (Wo rk) Social History Tobacco Use Types Packs/Day Years Used Date Never Assessed Sex Assigned at Date Recorded Not on file documented as of this encounter Progress Notes Bobby Banuelos MD - 04/07/2011 10:11 AM EDT Procedure date: done today Procedure type: right Breast US guided biopsy Special Instructions: none Allergies: Pollen extracts, Pollen,fermented and Pollen,micronized Medications: has a current medication list which includes celexa, zyrtec, glucosamine hcl/chondro sua, ascorbate calcium, metrocream, calcium, omeprazole, vitamin b complex, co q-10, and multivitamin. Anticoagulation status: none Imaging reviewed and procedural plan approved by Dr. BOBBY BANUELOS documented in this encounter Plan of Treatment Not on filedocumented as of this encounter Visit Diagnoses Not on filedocumented in this encounter Care Teams Boiling House Hand Relationship Specialty Start Date End Date Jeri Bolivar MD PCP - General 04/07/11 [address] [place] [address] documented as of this encounter
--- OUTSIDE RECORDS SUMMARY | 2022-06-30 09:59 | XMS_ITS | Encounter Summary ---
:1950 Author Organization [facility] [place] [address] Care Team Providers Name Role Phone Jeri Bolivar MD Primary Care Provider Encounter Details Date Type Department Care Team Description 09/07/2011 Telephone Sleep Medicine Denisse Kee, [facility] Lida rees APRN [address] [phone] PSYCHIATRY DEPT. [place] [phone] (Wo rk) Social History Tobacco Use Types Packs/Day Years Used Date Never Assessed Sex Assigned at Date Recorded Not on file documented as of this encounter Miscellaneous Notes Telephone Encounter - Denisse Kee APRN - 09/07/2011 4:54 PM EST Pt had had her CPap compliance download faxed to the [facility] sleep lab for review, in anticipation of her scheduled appt on 09/08/11; Although we had arranged a phone consult at 4:45p, she was unavailable to speak, so a VM was provided. Pt's AHI has worsened to 4.9 events/hour; She seems to be showing less air leakage from her mask, and her vibratory snore has improved. I do not know if her aerophagia has improved- if she is feeling well on the current pressure range of 14-18, then we could conceivably leave her at this auto-range, given her history of air intolerance in the past. Otherwise, we might consider increasing the high endof her pressure range, as 90% of her respiratory apneas/arousals seem to be taken care of at a pressure of 17.2cm H2o. I suggested that patient either attend tomorrow's appt to discuss in person, or asked her to phone to cancel, and we will discuss more fully over the telephone. documented in this encounter Plan of Treatment Not on filedocumented as of this encounter Visit Diagnoses Not on filedocumented in this encounter Care Teams Braille Operator Relationship Specialty Start Date End Date Jeri Bolivar MD PCP - General 04/07/11 [address] [place] [address] documented as of this encounter
--- OUTSIDE RECORDS SUMMARY | 2022-06-30 09:59 | XMS_ITS | Encounter Summary ---
:1950 Author Organization [facility] [address] Care Team Providers Name Role Phone Hodan Hunt Primary Care Provider Encounter Details Date Type Department Care Team Description 09/03/2010 Hospital Encounter Occupational Medicine at [facility] [place] [place] [address] GENERAL SURGERY [place] [address] (Wo rk) Social History Tobacco Use Types Packs/Day Years Used Date Never Assessed Sex Assigned at Date Recorded Not on file documented as of this encounter Plan of Treatment Not on filedocumented as of this encounter Visit Diagnoses Not on filedocumented in this encounter Care Teams [employer] Business Manager Relationship Specialty Start Date End Date Hodan Hunt PA PCP - General 08/20/10 04/06/11 documented as of this encounter
--- OUTSIDE RECORDS SUMMARY | 2022-06-30 09:59 | XMS_ITS | Encounter Summary ---
:1950 Author Organization [facility] [place] [address] Care Team Providers Name Role Phone Hodan Hunt Primary Care Provider Encounter Details Date Type Department Care Team Description 04/01/2011 Hospital Encounter Mammography at [facility] [place] [address] Social History Tobacco Use Types Packs/Day Years Used Date Never Assessed Sex Assigned at Date Recorded Not on file documented as of this encounter Medications at Time of Discharge Medication Sig Dispensed Refills Start Date End Date citalopram (CELEXA) 20 mg 0 11/11/2010 tablet cetirizine (ZYRTEC) 10 mg 10MG, PO, Once 0 2010 tablet daily GLUCOSAMINE HCL/CHONDRO BALLARD A 0 011 (GLUCOSAMINE-CHONDROITIN ORAL) ASCORBIC ACID (VITAMIN C 0 11/11/2010 ORAL) metroNIDAZOLE (METROCREAM) 0 1 0.75 % cream Calcium 500 mg Tab 0 11/11/2010 omeprazole (PRILOSEC) 20 mg 0 11/12/19 11 capsule VITAMIN B COMPLEX (B COMPLEX 0 011 VITAMINS ORAL) Coenzyme Q10 (CO Q-10) 200 0 1 mg Cap multivitamin (THERAGRAN) 0 11/11/2010 tablet documented as of this encounter Plan of Treatment Not on filedocumented as of this encounter Procedures Procedure Name Priority Date/Time Associated Comments Diagnosis MAMMO DIRECT DIGITAL Routine 04/01/2011 1:56 PM R esults for this UNILATERAL EDT procedure are i n the results section. documented in this encounter Results MAMMO DIRECT DIGITAL UNILATERAL (04/01/2011 1:56 PM EDT) Anatomical Region Laterality Modality Breast N/A Mammography Specimen (Source) Anatomical Collection Method Collection Time Re ceived Time Location / / Volume Laterality 04/01/2011 1:56 PM EDT Narrative 04/01/2011 4:04 PM EDT [...] region revealing no dilated ducts. At the 7099-9691 position , 1-2cm from the nipple is [...] the duct system; however, there is no electrical intern al vascularity. There is a hyperechoic [...] region revealing no dilated ducts. At the 6656-5142 position , 1-2cm from the nipple is [...] the duct system; however, there is no electrical intern al vascularity. There is a hyperechoic well defined rim representing the duct w all or pseudocapsule. There is neutral through transmission. The mass is parall el in orientation and well circumscribed. Peter Wheat MD IMG MAMMO ORDERABLES documented in this encounter Visit Diagnoses Not on filedocumented in this encounter Care Teams Trim Machine Adjuster Relationship Specialty Start Date End Date Hodan Hunt PA PCP - General 08/20/10 04/06/11 documented as of this encounter
--- OUTSIDE RECORDS SUMMARY | 2022-06-30 09:59 | XMS_ITS | Encounter Summary ---
:1950 Author Organization [facility] [address] Care Team Providers Name Role Phone Jeri Bolivar MD Primary Care Provider Encounter Details Date Type Department Care Team Description 04/07/2011 Hospital Encounter Mammography at [facility], DR MAYS Lump or mass in breast; [facility] Peter Wheat MD [facility] [place] [address] Abnormal [place] [address] Social History Tobacco Use Types Packs/Day Years [...] 11/11/2010 tablet documented as of this encounter Miscellaneous Notes Miscellaneous - Provider, Scanning - 05/01/2011 12:24 PM EDT Miscellaneous - Provider, Scanning - 05/01/2011 12:20 PM EDT documented in this encounter Plan of Treatment Not on filedocumented as of this encounter Procedures Procedure Name Priority Date/Time Associated Diagnosis Comme nts MAMMO US BIOPSY Routine 04/07/2011 12:09 PM Lump or mass in Re sults for this BILATERAL EDT breast procedure are in Abnormal ultrasound the resu lts of breast section. documented in this encounter Results Mammo- US biopsy (04/07/2011 12:09 PM EDT) [...] with biopsies. ?? A 17-gauge Ultracore (US) [place] marker c lip was placed. Cranio-caudal and [...] decrease/resolve with biopsies. A 17-gauge Ultracore (US) [place] marker c lip was placed. Cranio-caudal and [...] Film and interpretation reviewed by the attending Merel Figueroa MD IMG MAMMO ORDERABLES documented in this encounter Visit Diagnoses Diagnosis Lump or mass in breast Abnormal ultrasound of breast Other (abnormal) findings on radiologica l examination of breast documented in this encounter Care Teams Brick Mason Relationship Specialty Start Date End Date Jeri Bolivar MD PCP - General 04/07/11 [address] [place] [address] documented as of this encounter
--- OUTSIDE RECORDS SUMMARY | 2022-06-30 09:59 | XMS_ITS | Encounter Summary ---
:1950 Author Organization [facility] [place] [address] Care Team Providers Name Role Phone Hodan Hunt Primary Care Provider Encounter Details Date Type Department Care Team Description 04/01/2011 Hospital Encounter Mammography at [facility], DR DAVON [facility] Peter Hay MD [facility] [place] [address] [place] [address] Social History Tobacco Use Types Packs/Day [...] on filedocumented in this encounter Care Teams Piano Machine Operator Relationship Specialty Start Date End Date Hodan Hunt PA PCP - General 08/20/10 04/06/11 documented as of this encounter
--- OUTSIDE RECORDS SUMMARY | 2022-06-30 09:59 | XMS_ITS | Encounter Summary ---
:1950 Author Organization [facility] Address [facility] [place] [address] Care Team Providers Name Role Phone Jeri Bolivar MD Primary Care Provider Encounter Details Date Type Department Care Team Description 04/07/2011 Hospital Encounter Mammography [place] [facility] Lump or mass in breast; [facility] Abnormal [place] [address] Social History Tobacco Use Types Packs/Day [...] Procedure Name Priority Date/Time Associated Comments Diagnosis SURGICAL PATHOLOGY Routine 04/07/2011 12:43 PM Re sults for this REPORT EDT procedure are i n the results section. MAMMO DIRECT DIGITAL Routine 04/07/2011 12:12 PM Lump or mass in Results for this UNILATERAL EDT breast procedure are in Abnormal ultrasound the resu lts of breast section. documented in this encounter Results SURGICAL PATHOLOGY REPORT (04/07/2011 12:43 PM EDT) Component Value Ref Test Analysis Performed At [facility] Range Method Time Signature Surgical CERNER Pathology ? [facility] Report ? Provider: ?? BOBBY BANUELOS ?? Pt. Name: ?? JODIE MARTINEZ ? Acc #: ?[id number] ?Pt. MRN: ?[id number] ? Col Date: ?? 04/07/2011 ? /Sex: ?1 ,(60 ? years),Female ? Rec Date: ?? 04/07/2011 ? LOC: ?3S ? SURGICAL PATHOLOGY ? ---Pathologic Diagnosis--- ? Needle biopsies: ?Right breast. ? Diagnosis: ?Benign breast tissue with portions of cyst wall. ? Microcalcifications: ??N/A. ? CR-0 ? 04/08/11 ? ALVARO ? 04/08/11 Verified by: ? Aleksandar Booker MD ? Pathologist ? (Electronic Si gnature) ? The attending pathologist whose signature appears o n this report has ? reviewed all diagnostic slides and has edited the warren ss and/or ? microscopic portion of the report in rendering the fi nal pathologic ? diagnosis. ? ---Microscopic Description--- ? Slides reviewed, microscopic description not recorded . ? ---Gross Description--- ? Labeled/Fixative: ? Right breast, formalin. ? Qty/Size/Weight: ?Four yellow, focally h emorrhagic needle core ? biopsies, varying from 0.5 cm to 2.0 x 0.1 cm. ? Sections/Processing: ??(T1) ??aje/SHB ? ---Clinical Information--- ? Specimen Submitted: ? A - Right breast ? Clinical History/Diagnosis: ? Oval circumscribed mass. ? FA/cyst/papilloma Specimen (Source) Anatomical Collection Method Collection Time Re ceived Time Location / / Volume Laterality 04/07/2011 12:43 PM EDT Bobby Banuelos MD PATHOLOGY/CYTOLOGY ORDERABLE S Performing Organization Address City/State/[place] [address] [facility] [employer] Mammo direct digital unilateral (04/07/2011 12:12 PM [...] with biopsies. ?? A 17-gauge Ultracore (US) [place] marker c lip was placed. Cranio-caudal and [...] decrease/resolve with biopsies. A 17-gauge Ultracore (US) [place] marker c lip was placed. Cranio-caudal and [...] breast documented in this encounter Care Teams Community Mental Health Social Worker Relationship Specialty Start Date End Date Jeri Bolivar MD PCP - General 04/07/11 [address] [place] [address] documented as of this encounter
--- OUTSIDE RECORDS SUMMARY | 2022-06-30 09:59 | XMS_ITS | Encounter Summary ---
:1950 Author Organization [facility] [place] [place] [address] Care Team Providers Name Role Phone Jeri Bolivar MD Primary Care Provider Encounter Details Date Type Department Care Team Description 07/15/2010 Follow-Up Sleep Medicine AlejandroDenisse Young, [facility] Lida rees APRN [address] [phone] PS[facility]IATRY DEPT. [place] [phone] (Wo rk) Social History Tobacco Use Types Packs/Day Years Used Date Never Assessed Sex Assigned at Date Recorded Not on file documented as of this encounter Plan of Treatment Not on filedocumented as of this encounter Visit Diagnoses Not on filedocumented in this encounter Care Teams Superintendent Quarry Relationship Specialty Start Date End Date Jeri Bolivar MD PCP - General 07/15/10 08/19/10 [address] [place] [address] documented as of this encounter
--- OUTSIDE RECORDS SUMMARY | 2022-06-30 09:59 | XMS_ITS | Encounter Summary ---
:1950 Author Organization [facility] [place] [address] Care Team Providers Name Role Phone Hodan Hunt Primary Care Provider Encounter Details Date Type Department Care Team Description 08/20/2010 Office Visit General Surgery at [facility] Merle Ann, [facility] [place] [address] [facility] [phone] GENERAL SURGERY [place] [address] (Wo rk) Social History Tobacco Use Types Packs/Day Years Used Date Never Assessed Sex Assigned at Date Recorded Not on file documented as of this encounter Plan of Treatment Not on filedocumented as of this encounter Visit Diagnoses Not on filedocumented in this encounter Care Teams Business Reporting Developer Relationship Specialty Start Date End Date Hodan Hunt PA PCP - General 08/20/10 04/06/11 documented as of this encounter
--- OUTSIDE RECORDS SUMMARY | 2022-06-30 09:59 | XMS_ITS | Encounter Summary ---
:1950 Author Organization [facility] [place] [address] Care Team Providers Name Role Phone Hodan Hunt Primary Care Provider Encounter Details Date Type Department Care Team Description 04/01/2011 Orders Only Radiology Merle Figueroa MD [facility] [place] [phone] DIAGNOSTIC RADIOLOGY [phone] [place] [address] (Wo rk) Social History Tobacco Use Types Packs/Day Years Used Date Never Assessed Sex Assigned at Date Recorded Not on file documented as of this encounter Plan of Treatment Not on filedocumented as of this encounter Visit Diagnoses Not on filedocumented in this encounter Care Teams Clinical Operations Specialist Relationship Specialty Start Date End Date Hodan Hunt PA PCP - General 08/20/10 04/06/11 documented as of this encounter
== END 2022-06-24 09:52 | disposition home or self-care (01) ==
LOC: LBN 09:51
PROVIDERS: PCP Nurse Practitioner Family; Visit Provider Physician Assistant
DX: R19.7 Diarrhea, unspecified (principal)
CPT/HCPCS: 87493; 87505; 87177

== ENCOUNTER → 2022-07-31 00:59 | Outpatient (CLI) | payer MEDICARE, SELFPAY ==
--- NOTE | 2022-07-31 14:22 | DI.DEXA_ITS ---
Exam(s) XR DEXA BONE DENSITY W/WO ADRIANA EXAM: XR DEXA BONE DENSITY W/WO ADRIANA CLINICAL HISTORY: Osteopenia,SCREENING FOR OSTEOPOROSIS IN POSTMENOPAUSAL WOMAN,Z78.0 TECHNIQUE: COMPARISON: Comparison examination is 01/19/2008. FINDINGS: Lateral Spine Image: Unremarkable. No compression deformities identified. Left hip: Total T-Score: -1.8. This compares to -1.1 on the prior examination. Total Z-Score: -0.3 T- and Z-scores: Findings are consistent with osteopenia. Lumbar Spine: Total T-Score: -3.0. This compares to -2.4 on the prior examination. Total Z-Score: -0.9 T- and Z-scores: Findings are consistent with osteoporosis. IMPRESSION: Findings of osteoporosis.
== END ==
PROVIDERS: PCP Nurse Practitioner Family; Visit Provider Nurse Practitioner Family
DX: M85.88 Other specified disorders of bone density and structure, other site (principal); Z78.0 Asymptomatic menopausal state; Z13.820 Encounter for screening for osteoporosis; M81.0 Age-related osteoporosis without current pathological fracture
CPT/HCPCS: 77080

== ENCOUNTER → 2022-08-20 01:45 | Outpatient (CLI) | payer MEDICARE, SELFPAY ==
--- NOTE | 2022-08-20 06:30 | DI.MAMMO_ITS ---
Exam(s) MAMMO SCREENING EXAM: MAMMO SCREENING CLINICAL HISTORY: screening,z12.39. TECHNIQUE: Bilateral full field digital CC and MLO mammographic images were obtained with 3D tomosyn thesis and utilizing computer aided detection (CAD). COMPARISON: Prior mammograms were reviewed. FINDINGS: There has been no significant change in the appearance and distribution of the fibroglandular tissue which is again noted be moderately dense, this decreasing the sensitivity of the mammogram for findin g hidden underlying lesions.. There are no new findings in the immediate vicinity of the biopsy marker clip in the right breast. Asymmetric density posteriorly in the right breast seen on the CC view is unchanged from prior mammog maddie. No new left breast findings. There is no significant architectural distortion nor skin thickening-retraction. IMPRESSION: Dense bilateral fibroglandular tissue. Stable benign-appearing findings. No obvious radiographic ev idence of malignancy. BI-RADS Category 2 - Benign Findings Breast Density - Category C - Heterogeneously dense Breast density Category C or D implies that the patient has dense breast tissue. Dense breast tissue can make it harder to find cancer on a mammogram. Dense breast tissue is also associated with an incr eased risk of breast cancer. This information about the result of the mammogram report was provided to the patient to raise their awareness. Use this report when you speak with the patient about their risks for breast cancer, which includes their family history. At that time, you may recommend additional screening tests (Ultrasoun d or MRI) as these tests may add significant information. A negative radiographic report should not delay biopsy if a dominant or clinically suspicious mass is present. Up to ten percent of cancers are not identified on mammography. A negative report may reinforce clinical impression. Adenosis and dense breasts may obscure an underlying neoplasm. False positive reports average 6 to 10%. Patient will receive a letter notifying them of these results.
== END ==
PROVIDERS: PCP Nurse Practitioner Family; Visit Provider Nurse Practitioner Family
DX: Z12.31 Encounter for screening mammogram for malignant neoplasm of breast (principal); R92.8 Other abnormal and inconclusive findings on diagnostic imaging of breast
CPT/HCPCS: 77063; 77067

== ENCOUNTER 2022-08-20 02:24 | Outpatient (CLI) | payer MEDICARE, SELFPAY ==
[2022-08-20 08:16] LABS: Hemoglobin A1C 5.9 % (<5.7)
[2022-08-20 08:40] LABS: Anion Gap 3.7 mmol/L (3-11); BUN 19 mg/dL (7-18); CO2 33.3 mmol/L (21.0-32.0); CREATININE 0.8 mg/dL (0.55-1.02); Calcium 9.2 mg/dL (8.5-10.1); Calculated LDL 154 mg/dL (<100); Chloride 102 mmol/L (98-107); Cholesterol 235 mg/dL (<200); Estimated GFR 79.71 (mL/min/1.73m2); Glucose 84 mg/dL (74-106); HDL Cholesterol 53 mg/dL (40-60); Sodium 139 mmol/L (136-145); Triglyceride 143 mg/dL (<150)
[2022-08-20 08:56] LABS: FREE T4 0.82 ng/dL (0.76-1.46)
== END 2022-08-20 02:25 | disposition home or self-care (01) ==
LOC: LBO 02:24
PROVIDERS: PCP Nurse Practitioner Family; Visit Provider Nurse Practitioner Family
DX: E78.00 Pure hypercholesterolemia, unspecified (principal); I10 Essential (primary) hypertension; R73.01 Impaired fasting glucose
CPT/HCPCS: 36415; 80048; 80061; 83036; 84439; 84443

== ENCOUNTER 2022-09-08 14:54 | Outpatient (CLI) | payer MEDICARE, SELFPAY ==
[2022-09-08 16:17] LABS: Abs Immature Grans 0.05 10^3/uL (0.0-0.06); Absolute Basophil Count 0.03 10^3/uL (0.0-0.2); Absolute Eosinophil Count 0.13 10^3/uL (0.0-0.7); Absolute Lymphocyte Count 1.32 10^3/uL (1.2-3.4); Absolute Monocyte Count 0.63 10^3/uL (0.1-0.8); Absolute Neutrophil Count 4.49 10^3/uL (1.2-6.7); Basophils % 0.5; HCT 35.3 % (36.0-46.0); HGB 11.8 g/dL (11.2-15.7); Immature Grans % 0.8; Lymphocytes % 19.8; MCH 29.6 pg (27.0-33.0); MCHC 33.4 % (32.0-36.0); MCV 89 fL (80-95); Monocytes % 9.5; Neutrophils % 67.4; Platelet Count 339 10^3/uL (130-400); RBC 3.99 10^6/uL (3.93-5.22); RDW 12.6 % (11.7-14.6); RDW-SD 40.9 fL; WBC 6.65 10^3/uL (4.4-10.8)
[2022-09-08 17:30] LABS: Ferritin 13 ng/mL (8-252); Vitamin B12 738 pg/mL (193-986)
== END 2022-09-08 14:55 | disposition home or self-care (01) ==
LOC: LBO 14:55
PROVIDERS: PCP Nurse Practitioner Family; Visit Provider Nurse Practitioner Family
DX: D64.9 Anemia, unspecified (principal); Z79.899 Other long term (current) drug therapy
CPT/HCPCS: 36415; 82607; 82728; 85025

== ENCOUNTER 2022-11-25 17:16 | Outpatient (REF) | payer MEDICARE, SELFPAY ==
[2022-11-25 21:00] LABS: Bilirubin Negative (Negative); Blood Moderate (Negative); Clarity Cloudy (Clear); Glucose Negative (Negative); Ketones Negative (Negative); Leukocyte Esterase Moderate (Negative); Nitrite Positive (Negative); Specific Gravity >= 1.030 (1.005-1.025); Urobilinogen 0.2 mg/dL (Up to 0.2); pH 5.5 (5-8)
[2022-11-25 21:09] LABS: Bacteria Many HPF (Negative); C & S Indicated? Yes; Casts Negative LPF (Negative); Crystals Negative HPF (Negative); Epithelial Cells Few HPF (Negative); Mucus Trace (Negative); WBC 20-50 HPF (0-5)
== END 2022-11-25 17:17 | disposition home or self-care (01) ==
LOC: LBN 17:16
PROVIDERS: PCP Nurse Practitioner Family; Visit Provider Nurse Practitioner Family
DX: R30.0 Dysuria (principal); R35.0 Frequency of micturition
CPT/HCPCS: 87077; 81003; 81015; 87086; 87186

== ENCOUNTER 2022-11-25 17:22 | Outpatient (CLI) | payer MEDICARE, SELFPAY ==
--- NOTE | 2022-11-25 17:30 | DI.RAD_ITS ---
Exam(s) XR FOOT RT COMPLETE EXAM: XR FOOT RT COMPLETE CLINICAL HISTORY: evaluate for fx. TECHNIQUE: 2D digital imaging was performed. COMPARISON: No exams were available for comparison FINDINGS: 3 views There is soft tissue swelling dorsally. There is a fracture of the hid-neck of the 4th metatarsal with minimal displacement. No other fractu res identified. No diastasis of the Lisfranc joint. Small calcific density seen in the soft tissues immediately adjacent to the medial aspect of the head of the great toe metatarsal. Incidentally not ed is a bipartite medial sesamoid subjacent to the great toe metatarsal head. No degenerative change s at the great toe metatarsophalangeal joint. IMPRESSION: There is a fracture at the head-neck of the 4th metatarsal. Minimal displacement. No radiopaque for eign body. DATA REPOSITORY: RADIATION DOSE DELIVERED:
--- NOTE | 2022-11-25 18:15 | DI.VRAD_ITS ---
PROCEDURE INFORMATION: Exam: XR Right Foot Exam date and time: 11/25/2022 5:49 PM Age: 72 years old Clinical indication: Other: Eval for FX TECHNIQUE: Imaging protocol: Radiologic exam of the right foot. Views: 3 or more views. Total images: 3 COMPARISON: CR RIGHT FOOT COMPLETE 05/30/2016 6:17 PM FINDINGS: Bones/joints: Acute fracture distal metadiaphysis of the 4th metatarsal without significant distraction or displacement. Mild apex medial angulation. No dislocation. Joint spaces appear normal. Soft tissues: Soft tissue swelling. No radiopaque foreign bodies. IMPRESSION: 1. Acute fracture distal metadiaphysis of the 4th metatarsal without significant distraction or displacement. Mild apex medial angulation. 2. Soft tissue swelling. Dictated and Authenticated by: Kerri Luna MD. Ordering:SHERYL Colmenares MD
== END 2022-11-25 17:42 ==
PROVIDERS: PCP Nurse Practitioner Family; Visit Provider Nurse Practitioner Family
DX: M79.671 Pain in right foot (principal); M79.89 Other specified soft tissue disorders; S92.341A Displaced fracture of fourth metatarsal bone, right foot, initial encounter for closed fracture; X58.XXXD Exposure to other specified factors, subsequent encounter
CPT/HCPCS: 73630

== ENCOUNTER 2022-11-27 11:21 | Emergency (ER) | payer MEDICARE, SELFPAY ==
[2022-11-27 11:25] VITALS: BP 137/70; PULSE 66; RESP 18; TEMP 36.9; O2SAT 100
--- NOTE | 2022-11-27 11:30 | DI.RAD_ITS ---
Exam(s) XR TIB/FIB LT XR ANKLE LT COMPLETE EXAM: XR TIB/FIB LT and XR ankle LT complete CLINICAL HISTORY: pain s.p fall. TECHNIQUE: 2D digital imaging was performed of the left ankle, tibia and fibula. Five images were ob tained. AP and lateral views were obtained. COMPARISON: CR XR ANKLE LT COMPLETE from 11/27/2022 FINDINGS: BONES: On the AP view of the tibia and fibula there appears to be a nondisplaced fracture involving t he proximal shaft of the fibula. No bony destructive lesion is seen. Visualized portion of knee and ankle joints are unremarkable. SOFT TISSUE: Normal. IMPRESSION: Nondisplaced fracture involving the proximal shaft of the left fibula. DATA REPOSITORY: RADIATION DOSE DELIVERED:
--- NOTE | 2022-11-27 11:37 | W.ED.GENAD ---
Discharge Plan Disposition Patient Disposition: Home Condition: Stable Discharge Details Clinical Impression: Left ankle sprain, Fracture of left fibula Primary Care Provider: Kathleen Brambila ED Provider: Joe Junior Home Meds and New Rx's Prescriptions: Continued melatonin 3 mg capsule 3 mg PO HS PRN cetirizine 10 mg tablet 10 mg PO DAILY PRN (Reason: allergy symptoms) Qty: 90 3RF epinephrine 0.3 mg/0.3 mL auto-injector 0.3 ml IM Q5-15M PRN (Reason: hypersensitivity reaction) Qty: 2 4RF hydrochlorothiazide 25 mg tablet 25 mg PO DAILY Qty: 90 3RF Tumeric with black pepper See Rx Instructions .ROUTE .COMPLEX Rx Instructions: per patient; omega-3 fatty acids [Fish Oil Concentrate] 1,000 mg capsule 1,000 mg PO DAILY nitrofurantoin monohyd/m-cryst [Macrobid] 100 mg capsule 100 mg PO Q12H 5 Days Qty: 10 0RF Rx Instructions: must administer with a meal/food. Take 1 pill every 12 hours x 5 days calcium carbonate-vitamin D3 [Calcium 600 + D(3)] 1 EACH tablet 1 ea PO BID multivitamin [One Daily Multivitamin] 1 EACH tablet 1 ea PO DAILY acetaminophen 500 mg tablet 500 mg PO DAILY PRN garlic Capsule See Rx Instructions PO DAILY Rx Instructions: 1 cap PO daily; citalopram [Celexa] 20 mg tablet 30 mg PO DAILY Qty: 135 0RF ascorbic acid (vitamin C) 500 mg tablet 500 mg PO DAILY PRN Rx Instructions: Uses seasonally ibuprofen 200 mg tablet 200 mg PO QID PRN ferrous sulfate 325 mg (65 mg iron) tablet 325 mg PO DAILY Qty: 90 3RF Rx Instructions: Take 1 tablet daily Discharge Instructions Additional Instructions: your xray showed a nondisplaced fibula fracture which will heal with time follow up as needed with your primary care provider if you feel more ill, have severe worsening pain or new pain such as chest pain return to the emergency department Medical Decision Making 72 yo female was walking down a small hill when she slipped and rolled her left ankle. Denies hitting her head, loc or preceding symptoms to the fall. She has mid calf tenderness and left lateral ankle pain. No head, neck, back, abdomen pain. She has no visible or palpable deformities of the ankle or leg. She has full rom of the ankle though with some pain over the lateral malleolus. Normal sensation and pulses. No visible or palpable deformity of the calf. Suspect strain, will xray to evaluate for fracture radiology questioning nondisplaced fibula fracture, no other findings. discussed results with patient, advised usually treated conservatively and weight bearing as tolerated. Offered her ortho referral, she declined and will f/u with pcp as needed. Return precautions given Differential Diagnosis Differential Diagnosis: fracture, contusion, sprain Imaging Data Radiologic Study: Attestation: I personally reviewed and interpreted this imaging study as follows: Imaging: X-Ray Radiologist's impression: no acute findings ankle xray Radiologic Study #2: Attestation: I personally reviewed and interpreted this imaging study as follows: Imaging: X-Ray Radiologist's impression: nondisplaced fibula fracture HPI General Mode of arrival: ambulatory. Date/Time Provider Initiated Documentation: 11/27/22 11:36. Limitations to Documentation: no limitations. Information obtained by: patient. History of Present Illness 72 year old F presents to the emergency department with the chief complaint of left ankle pain, described as moderate, Quality is described as aching, and is localized to the left and lower extremity. Patient reports no radiation. Patient started experiencing this hour(s) (4) and it has been constant. Rest improves symptom(s), Other factors that worsen symptoms (walking) . Patient notes no other symptoms.. Patient did receive the following treatments prior to arrival, none Related Data Home Medications Medication Instructions Recorded Confirmed calcium carbonate 600 mg-vitamin 1 ea PO BID 06/28/13 11/27/22 D3 10 mcg (400 unit) tablet (Calcium 600 + D(3)) multivitamin (One Daily 1 ea PO DAILY 09/26/15 11/27/22 Multivitamin tablet) Tumeric with black pepper See Rx Instructions .Route .COMPLEX 01/17/20 11/27/22 omega-3 fatty acids 1,000 mg 1,000 mg PO DAILY 04/26/20 11/27/22 capsule (Fish Oil Concentrate) acetaminophen 500 mg tablet 500 mg PO DAILY PRN 04/30/20 11/27/22 garlic See Rx Instructions PO DAILY 04/30/20 11/27/22 melatonin 3 mg capsule 3 mg PO HS PRN 05/05/21 11/27/22 citalopram 20 mg tablet (Celexa) 30 mg PO DAILY #135 tab-caps 05/07/22 11/27/22 ascorbic acid (vitamin C) 500 mg 500 mg PO DAILY PRN 07/27/22 11/27/22 tablet cetirizine 10 mg tablet 10 mg PO DAILY PRN allergy 07/27/22 11/27/22 symptoms #90 tab-caps epinephrine 0.3 mg/0.3 mL 0.3 ml IM Q5-15M PRN 07/27/22 11/27/22 injection, auto-injector hypersensitivity reaction #2 ea hydrochlorothiazide 25 mg tablet 25 mg PO DAILY #90 tabs 07/27/22 11/27/22 ibuprofen 200 mg tablet 200 mg PO QID PRN 07/27/22 11/27/22 ferrous sulfate 325 mg (65 mg 325 mg PO DAILY #90 tabs 09/11/22 11/27/22 iron) tablet nitrofurantoin 100 mg PO Q12H 5 days #10 caps 11/25/22 11/25/22 monohydrate/macrocrystals 100 mg capsule (Macrobid) Previous Rx's Medication Instructions Recorded citalopram 20 mg tablet (Celexa) 30 mg PO DAILY #135 tab-caps 05/07/22 cetirizine 10 mg tablet 10 mg PO DAILY PRN allergy 07/27/22 symptoms #90 tab-caps epinephrine 0.3 mg/0.3 mL 0.3 ml IM Q5-15M PRN 07/27/22 injection, auto-injector hypersensitivity reaction #2 ea hydrochlorothiazide 25 mg tablet 25 mg PO DAILY #90 tabs 07/27/22 ferrous sulfate 325 mg (65 mg 325 mg PO DAILY #90 tabs 09/11/22 iron) tablet nitrofurantoin 100 mg PO Q12H 5 days #10 caps 11/25/22 monohydrate/macrocrystals 100 mg capsule (Macrobid) Allergies Allergy/AdvReac Type Severity Reaction Status Date / Time No Known Allergies Allergy Verified 11/25/22 16:27 General Stated Complaint: Orthopedic BELINDA: 4 Review of Systems All systems reviewed & are unremarkable except as noted in HPI and below Constitutional Constitutional: Denies chills, Denies fever(s) and Denies weakness Cardiovascular Cardiovascular: Denies chest pain and Denies dyspnea Respiratory Respiratory: Denies cough and Denies dyspnea Gastrointestinal Gastrointestinal: Denies abdominal pain, Denies nausea and Denies vomiting Musculoskeletal Musculoskeletal: Denies joint swelling Neurologic Neurologic: Denies weakness PFSH All Active Problems (Updated 11/27/22 @ 12:48 by Joe Junior MD) Left ankle sprain (Acute) Fracture of left fibula (Acute) ODETTE (obstructive sleep apnea) (Chronic) CPAP Essential hypertension (Chronic) Hyperlipidemia (Chronic) Major depressive disorder, recurrent (Chronic) Chronic diarrhea (Chronic) Prediabetes (Chronic) GERD (gastroesophageal reflux disease) (Chronic) Osteoporosis (Chronic) Dexa 2021; completed 5 years of fosamax years ago Incisional hernia (Chronic) Internal hemorrhoids (Chronic) Rosacea, acne (Chronic) Carpal tunnel syndrome, left (Chronic) Ganglion cyst of finger (Chronic) Ganglion cyst of dorsum of left wrist (Chronic) Medical History Choledochal cyst Surgical History History of incisional hernia repair Status post abdominal hysterectomy Status post breast biopsy Status post cholecystectomy Status post tonsillectomy and adenoidectomy Family History Mother Heart disease Skin cancer Hypertension Father Hyperlipidemia Asthma Heart disease Depression Prostate cancer Sister Hypertension Hyperlipidemia Sister Hypothyroidism Hypertension Paternal Grandfather , 85+ GI cancer Paternal Grandmother , 40s Meningitis Maternal Grandfather Melanoma Maternal Grandmother Stroke Hypertension Skin cancer Heart disease Social History Smoking/Tobacco Use Status: Never Second Hand Exposure: Yes Smoking risk assessment performed?: Yes Alcohol Intake: current Alcohol Intake frequency: holidays/special occasions only Alcohol type: wine Drug use: Never Substance use type: does not use Caregiver/Support person: No Household members: spouse Housing: house Communication Needs: Corrective Lenses Do you need help understanding health information?: Rarely Pets and animals: Yes Pets and animals: dog(s) Sexually active: No Do you think of yourself as: straight/heterosexual What is your relationship status?: How often do you talk on the phone with friends or family?: twice per week How often do you get together with friends or relatives?: once per week How often do you attend scientology or jehovah's witness services?: 4 or more times per year Do you belong to any clubs or organized social groups?: yes Panel score (0-1 are the most socially isolated patients): 4 What type of physical activity do you participate in: other Details: exercise class Duration: 45-60 minutes/day Frequency: 1-2 times per week Shirley/Confucianist: [employer] shirley needs: No Seatbelt use: always Helmet use: No Drive intox or ride w/intox driver's license examiner: No Do you feel safe at home: Yes Do you feel safe in your relationship?: Yes Exam Const General: no acute distress Orientation: alert HENMT Head: normal to inspection Ears: external ears normal General nose exam: external nose normal Mouth: moist mucous membranes Eyes General: appearance normal, both eyes and all related structures Neck Neck: normal visual inspection Resp Effort & Inspection: normal respiratory effort and able to speak in complete sentences Cardio Rate: regular rate Skin General skin exam: no rashes or lesions noted Neuro General: patient alert and patient oriented x3 Extrem General: normal to inspection, full ROM and capillary refill normal Psych Mental Status: mental status grossly normal Course Vital Signs Vital signs: Vital Signs Temperature 36.9 C 11/27/22 11:25 Pulse 66 11/27/22 11:25 Respiratory Rate 18 11/27/22 11:25 Blood Pressure 137/70 11/27/22 11:25 Pulse Oximetry 100 11/27/22 11:25 Temperature 36.9 C 11/27/22 11:25 Temperature Source Tympanic 11/27/22 11:25 Pulse 66 11/27/22 11:25 Respiratory Rate 18 11/27/22 11:25 Blood Pressure 137/70 11/27/22 11:25 Blood Pressure Position Sitting 11/27/22 11:25 Pulse Oximetry 100 11/27/22 11:25 Oxygen Delivery Method Room Air 11/27/22 11:25 Oxygen Flow Rate 0 11/27/22 11:25 Pain Level 4 11/27/22 11:25
--- NOTE | 2022-12-07 18:05 | NUR.NOTE ---
Nursing Note: Accessed patient chart to print provider note to be faxed to [facility] for billing purposes.
== END 2022-11-27 13:00 | disposition home or self-care (01) ==
PROVIDERS: Emergency Provider Emergency Medicine; PCP Nurse Practitioner Family
DX: S82.402A Unspecified fracture of shaft of left fibula, initial encounter for closed fracture (principal); S93.402A Sprain of unspecified ligament of left ankle, initial encounter; W18.40XA Slipping, tripping and stumbling without falling, unspecified, initial encounter; X50.1XXA Overexertion from prolonged static or awkward postures, initial encounter; Y92.828 Other wilderness area as the place of occurrence of the external cause; Y93.01 Activity, walking, marching and hiking
CPT/HCPCS: 99283; 73590; 73610

== ENCOUNTER 2023-01-05 01:53 | Outpatient (CLI) | payer MEDICARE, SELFPAY ==
--- NOTE | 2023-01-05 09:21 | DI.RAD_ITS ---
Exam(s) XR FOOT RT COMPLETE EXAM: XR FOOT RT COMPLETE CLINICAL HISTORY: f/u fx,s92.341d. TECHNIQUE: 2D digital imaging was performed of the right foot. Three images were obtained. AP, obl ique and lateral views were obtained. COMPARISON: CR,XR XR FOOT RT COMPLETE from 11/25/2022 FINDINGS: BONES: There has been no change in alignment of the fracture through the neck of the right 4th metata rsal. No bony destructive lesion is seen. JOINTS: No dislocation present. SOFT TISSUE: Normal. IMPRESSION: Stable 4th metatarsal fracture. DATA REPOSITORY: RADIATION DOSE DELIVERED:
--- NOTE | 2023-01-05 09:21 | DI.RAD_ITS ---
Exam(s) XR TIB/FIB LT EXAM: XR TIB/FIB LT CLINICAL HISTORY: f/u fx,s82.402d. TECHNIQUE: 2D digital imaging was performed of the left tibia and fibula. Four images were obtained. AP and lateral views were obtained. COMPARISON: CR,XR XR FOOT RT COMPLETE from 11/25/2022 CR XR TIB/FIB LT from 11/27/2022 CR XR ANKLE LT COMPLETE from 11/27/2022 FINDINGS: BONES: There is a healing fracture which is nondisplaced in the proximal diaphysis of the left fibula again seen. At the ankle there now appears to be a nondisplaced fracture through the tip of the med ial malleolus. There is also an oblique lucency through the mid lateral aspect of the distal tibia w hich may represent a nondisplaced fracture. No bony destructive lesion is seen. Visualized portion o f knee knee is unremarkable. SOFT TISSUE: Normal. IMPRESSION: 1. Healing stable proximal left fibular fracture. 2. There does appeared now to be a nondisplaced fracture at the tip of the medial malleolus. 3. Question of a nondisplaced fracture through the lateral aspect of the distal tibia. 4. A CT scan through the left ankle is recommended for further evaluation. Unexpected findings DATA REPOSITORY: RADIATION DOSE DELIVERED:
== END 2023-01-05 02:13 ==
LOC: DI 01:53
PROVIDERS: PCP Nurse Practitioner Family; Visit Provider Family Medicine
DX: S82.402D Unspecified fracture of shaft of left fibula, subsequent encounter for closed fracture with routine healing (principal); S92.341D Displaced fracture of fourth metatarsal bone, right foot, subsequent encounter for fracture with routine healing; S82.52XA Displaced fracture of medial malleolus of left tibia, initial encounter for closed fracture; X58.XXXA Exposure to other specified factors, initial encounter
CPT/HCPCS: 73590; 73630

== ENCOUNTER 2023-02-16 01:36 | Outpatient (CLI) | payer MEDICARE, SELFPAY ==
--- NOTE | 2023-02-16 07:00 | DI.CT_ITS ---
Exam(s) CT LOWER EXTREMITY LT WO EXAM: CT LOWER EXTREMITY LT WO CLINICAL HISTORY: F/U ABNL XRAY OF TIBIA,R93.89,? NONDISPLACED FX LAT ASPECT DISTAL TIBIA. TECHNIQUE: Imaging Protocol: Axial computed tomography images with coronal and sagittal reformatted images were created and reviewed. CONTRAST MATERIAL: Intravenous: Omnipaque 350 Contrast volume:structured data in ml Contrast route:IV - COMPARISON: CR XR TIB/FIB LT from 11/27/2022 CR XR ANKLE LT COMPLETE from 11/27/2022 CR XR TIB/FIB LT from 01/05/2023 FINDINGS: Bones: Nondisplaced fracture with surrounding callus formation again noted of the proximal fibula. S ubacute appearing nondisplaced fracture is noted at the anterolateral aspect of the distal tibia at t he articular surface. There is no significant separation at the articular surface. No fractures joon ntified involving the medial malleolus as was questioned on recent plain film. A rounded bony densit y the tip of the lateral malleolus which appears old.. No cellulitic or osteomyelitic changes are i dentified. There are mild degenerative changes at the knee and ankle. The bones appear osteopenic. Soft Tissues: Normal. IMPRESSION: Nondisplaced, subacute appearing fracture at the articular aspect of the anterolateral distal tibia. Proximal fibular fracture with surrounding callus formation. RADIATION DOSE DELIVERED: 465.27mGy.cm Total DLP DATA REPOSITORY: All CT scans at this facility are submitted to the National Radiology Data Registry (NRDR) Dose Index Registry (DIR) with the [employer] (ACR). RADIATION OPTIMIZATION: All CT scans at this facility use at least one of these dose optimization te chniques: automated exposure control; mA and/or kV adjustment per patient size (includes targeted exa ms where dose is matched to clinical indication); or iterative reconstruction.
== END 2023-02-16 01:56 ==
LOC: DI 01:36
PROVIDERS: PCP Nurse Practitioner Family; Visit Provider Family Medicine
DX: X58.XXXD Exposure to other specified factors, subsequent encounter; S82.124D Nondisplaced fracture of lateral condyle of right tibia, subsequent encounter for closed fracture with routine healing
CPT/HCPCS: 73700

== ENCOUNTER 2023-06-29 01:02 | Outpatient (CLI) | payer MEDICARE, SELFPAY ==
[2023-06-29 08:11] LABS: Hemoglobin A1C 5.4 % (<5.7)
[2023-06-29 08:31] LABS: ALT 21 U/L (14-59); AST 15 U/L (15-37); Albumin 3.7 g/dL (3.4-5.0); Alkaline Phosphatase 52 U/L (46-116); Anion Gap 7.6 mmol/L (3-11); BUN 17 mg/dL (7-18); Bilirubin, Total 0.2 mg/dL (0.2-1.0); CO2 29.4 mmol/L (21.0-32.0); CREATININE 0.8 mg/dL (0.55-1.02); Calcium 9.3 mg/dL (8.5-10.1); Calculated LDL 127 mg/dL (<100); Chloride 101 mmol/L (98-107); Cholesterol 211 mg/dL (<200); Estimated GFR 79.22 (mL/min/1.73m2); Glucose 89 mg/dL (74-106); HDL Cholesterol 53 mg/dL (40-60); Potassium 3.8 mmol/L (3.5-5.1); Sodium 138 mmol/L (136-145); Total Protein 7.3 g/dL (6.4-8.2); Triglyceride 156 mg/dL (<150)
[2023-06-29 09:19] LABS: Vitamin D 25 Total 54.8 ng/mL (30-100)
[2023-06-30 10:46] LABS: Hepatitis C Ab w Rflx HCV PCR Negative (Negative)
== END 2023-06-29 01:03 | disposition home or self-care (01) ==
PROVIDERS: PCP Nurse Practitioner Family; Visit Provider Nurse Practitioner Family
DX: Z00.00 Encounter for general adult medical examination without abnormal findings (principal); E78.00 Pure hypercholesterolemia, unspecified; M81.0 Age-related osteoporosis without current pathological fracture; R73.03 Prediabetes
CPT/HCPCS: 36415; 80053; 80061; 82306; 86803; 83036; 84443

== ENCOUNTER 2023-07-29 11:33 | Outpatient (CLI) | payer MEDICARE, SELFPAY ==
[2023-07-29 12:23] LABS: HCT 37.9 % (36.0-46.0); HGB 13.2 g/dL (11.2-15.7); MCH 31.9 pg (27.0-33.0); MCHC 34.8 % (32.0-36.0); MCV 92 fL (80-95); MPV 10.4 fL (8.0-11.0); Platelet Count 274 10^3/uL (130-400); RBC 4.14 10^6/uL (3.93-5.22); RDW 11.9 % (11.7-14.6); RDW-SD 40.2 fL; WBC 5.69 10^3/uL (4.4-10.8)
[2023-07-29 12:46] LABS: Ferritin 29 ng/mL (8-252)
== END 2023-07-29 11:34 | disposition home or self-care (01) ==
LOC: LOS 11:33
PROVIDERS: PCP Nurse Practitioner Family; Referring Provider Nurse Practitioner Family; Visit Provider Nurse Practitioner Family
DX: E61.1 Iron deficiency (principal)
CPT/HCPCS: 36415; 85027; 82728

== ENCOUNTER 2023-09-22 11:43 | Outpatient (REF) | payer MEDICARE, SELFPAY ==
[2023-09-22 09:40] LABS: C Diff PCR Negative (Negative)
[2023-09-22 22:38] LABS: Campylobacter PCR Negative (Negative); Salmonella PCR Negative (Negative); Shiga Toxin PCR Negative (Negative); Shigella/Enteroinvasive Ecoli Negative (Negative)
== END 2023-09-22 11:44 | disposition home or self-care (01) ==
LOC: LBN 11:43
PROVIDERS: PCP Nurse Practitioner Family; Visit Provider Nurse Practitioner Family
DX: K52.9 Noninfective gastroenteritis and colitis, unspecified (principal)
CPT/HCPCS: 87493; 87505; 83630

== ENCOUNTER → 2023-10-04 10:17 | Outpatient (BNVA) | payer MEDICARE, SELFPAY | PROVIDERS: PCP Nurse Practitioner Family; Referring Provider Nurse Practitioner Family; Visit Provider Surgery | DX: K52.9 Noninfective gastroenteritis and colitis, unspecified (principal); K64.8 Other hemorrhoids; K21.9 Gastro-esophageal reflux disease without esophagitis; Z98.890 Other specified postprocedural states | CPT/HCPCS: 99214 ==

== ENCOUNTER 2024-08-02 01:40 | Outpatient (CLI) | payer MEDICARE, SELFPAY | END 2024-08-02 02:00 | LOC: DI 01:40 | PROVIDERS: PCP Nurse Practitioner Family; Visit Provider Nurse Practitioner Family | DX: R01.1 Cardiac murmur, unspecified (principal) | CPT/HCPCS: 93306 ==

== ENCOUNTER 2024-08-03 02:59 | Outpatient (CLI) | payer MEDICARE, SELFPAY ==
--- NOTE | 2024-08-02 06:15 | DI.US_ITS ---
APPROVED REPORT EXAM: Comprehensive 2D, Doppler, and color-flow Echocardiogram Patient Location: Out-Patient Iv Technician: Tracey Sexton RDCS (AE) Indications: Systolic murmur Other Information Study Quality: Adequate Conclusion Normal left ventricular wall thickness and chamber size EF is 60%. Wall motion is normal Normal right ventricular size and function. Both atria are normal in size There is no structural or hemodyncamically significant valvular disease Wall motion Left Ventricle The left ventricle is normal size. The left ventricular systolic function is normal. The left ventric ular ejection fraction is within the normal range. Mild concentric left ventricular hypertrophy. Ther e is normal LV segmental wall motion. There is no ventricular septal defect visualized. LVEF is 60%. Right Ventricle The right ventricle is normal size. The right ventricular systolic function is normal. Atria The left atrium size is normal. The right atrium size is normal. The interatrial septum is intact wit h no evidence for an atrial septal defect. Aortic Valve The aortic valve is normal in structure. Aortic valve is trileaflet. There is no aortic valvular sten osis. Mitral Valve The mitral valve is normal in structure. No evidence of mitral valve stenosis. Trace mitral regurgit ation. Tricuspid Valve The tricuspid valve is normal in structure. There is no tricuspid valve stenosis. Trace tricuspid reg urgitation. Unable to assess PA pressure. Pulmonic Valve The pulmonary valve is normal in structure. There is no pulmonic valvular stenosis. Trace pulmonic re gurgitation. Great Vessels The aortic root is normal in size. The ascending aorta is mildly dilated. Aortic arch is not well vis ualized. IVC is normal in size and collapses >50% with inspiration. Pericardium There is no pericardial effusion. 2D Dimensions IVSD d PLAX 1.14 cm F: 0.6-1.0 Ao Root d 2.65 cm F: 2.7 - 3.3 LVPW d PLAX 1.10 cm F: 0.6 - 1.0 Ao Asc Diam d 3.31 cm F: 2.3 - 3.1 LVID d PLAX 3.60 cm F: 3.8 - 5.2 LVDs 2.54 cm F: 2.2 - 3.5 LV EF Teichholz 57.4 % FS 29.51 % LV EDV (Teich) 54.6 mL LV ESV (Teich) 23.2 mL M-Mode TAPSE 2.71 cm (M/F) >1.7 Auto EF LV EDV A4C 65.6 mL LV EDV A2C 74.8 mL LV EDV BP 70.4 mL LV ESV A4C 26.1 mL LV ESV A2C 28.3 mL LV ESV BP 27.3 mL LVEF(%) A4C 60.2 % LVEF(%) A2C 62.1 % LVEF(%) BP 61.3 % LV SV A4C 39.5 ml LV SV A2C 46.4 ml LV SV BP 43.2 ml LV CO A4C 2.7 L/min LV CO A2C 3.2 L/min LV CO BP 3.0 L/min HR A4C 69.50 BPM HR A2C 69.10 BPM LV EDV Index (BP) LA Volume LA Length A4C 5.3 cm LA Length A2C 5.4 cm LA Area A4C s 16.65 cm2 LA Area A2C s 17.31 cm2 LA Vol A4C A-L 44.10 mL LA Vol A2C A-L 47.45 mL LA Vol Biplane A-L 45.8 mL LA Vol/BSA A4C A-L LA Vol/BSA A2C A-L LA Vol/BSA BP A-L 28.1 mL/m2 LA Vol A4C MOD 41.7 mL LA Vol A2C MOD 45.8 mL LA Vol BP MOD 43.6 mL RA Volume RA Area A4C 12.5 cm2 RA ESV A4C (A-L) 29.7mL RA Vol/BSA A4C A-L RA Length A4C 4.5 cm RA ESV A4C (MOD) 28.3mL LV Diastology MV E' medial 0.070 (>0.07 m/s) MV E Vmax 0.79 (0.4-1.3 m/s) MV E/E' MED 11.23 (<14) MV A Vmax 1.00 (0.4-1.3 m/s) MV E' lateral 0.074 (>0.1 m/s) E/A Ratio 0.8 MV E/E' LAT 10.70 (<14) MV E' Average 0.072 m/s MV E/E'(average) 10.96 Aortic Valve AoV Vmax 1.72 m/s LVOT Vmax 1.36 m/s AoV Peak Grad 11.8 mmHg LVOT Peak Grad 7.4 mmHg AoV Area (Vmax) 2.31 cm2 LVOT VTI 0.312 m AoV VTI 0.360 m LVOT Mean Grad 5.3 mmHg AoV Mean Lukasz. 1.15 m/s LVOT SV 90.77 mL AoV Mean Grad 6.2 mmHg LVOT Diam s 1.90 cm AoV Area (VTI) 2.52 cm2 AV Regurg Peak Gr. 11.81 mmHg Velocity Ratio 0.79 Mitral Valve MV DT 251 (160-240 msec) MV Vmax TIPS 0.95 m/s MV Mean Grad 2.0 (<2mmHg) MV VTI 0.321 m Pulmonary Valve PV Vmax 1.31 (0.5-1.5 m/s) RVOT Vmax 0.93 m/s PV Peak Grad 6.9 mmHg RVOT Peak Gr. 3.5 mmHg PV Mean Lukasz 0.89 m/s RVOT VTI 0.222 m PV Mean Grad 3.7 mmHg RVOT Mean Gr. 2.0 mmHg Tricuspid Valve TV S' 0.14 m/s
--- NOTE | 2024-08-02 09:01 | DI.MAMMO_ITS ---
Exam(s) MAMMO SCREENING EXAM: MAMMO SCREENING CLINICAL HISTORY: screening,z12.39. TECHNIQUE: Bilateral full field digital CC and MLO mammographic images were obtained with 3D tomosyn thesis and utilizing computer aided detection (CAD). COMPARISON: Prior mammograms were reviewed. FINDINGS: Fibroglandular tissue pattern is again noted moderately dense. No new findings in vicinity the biopsy marker clip in the right breast Benign-appearing microcalcifications and macrocalcifications again noted in both breasts. There are no new spiculated masses nor new malignant appearing microcalcification groups. There is no significant architectural distortion nor skin thickening-retraction. IMPRESSION: No radiographic evidence of malignancy. BI-RADS Category 1 - Negative Breast Density - Category C - Heterogeneously dense Breast density Category C or D implies that the patient has dense breast tissue. Dense breast tissue can make it harder to find cancer on a mammogram. Dense breast tissue is also associated with an incr eased risk of breast cancer. This information about the result of the mammogram report was provided to the patient to raise their awareness. Use this report when you speak with the patient about their risks for breast cancer, which includes their family history. At that time, you may recommend additional screening tests (Ultrasoun d or MRI) as these tests may add significant information. A negative radiographic report should not delay biopsy if a dominant or clinically suspicious mass is present. Up to ten percent of cancers are not identified on mammography. A negative report may reinforce clinical impression. Adenosis and dense breasts may obscure an underlying neoplasm. False positive reports average 6 to 10%. Patient will receive a letter notifying them of these results.
--- NOTE | 2024-08-03 | DI.DEXA_ITS ---
Exam(s) XR DEXA BONE DENSITY W/WO ADRIANA EXAM: XR DEXA BONE DENSITY W/WO ADRIANA CLINICAL HISTORY: osteoporosis, fosamax started 2021, POSTMENOPAUSAL STATE, OSTEOPOROSIS TECHNIQUE: Routine DEXA evaluation of the lumbar spine, hip, or forearm. COMPARISON: CR XR DEXA BONE DENSITY W/WO ADRIANA from 07/31/2022 FINDINGS: Performed on a [employer] unit. Lateral image: No compression fracture evident. Lumbar Spine total T-score: -2.7. Prior reading in July 2022 was -3.0 Hip total T-score:-1.7. Prior reading in 2021 was -1.8 Independent reading at the level of the femoral neck yields T-score of -2.5 Forearm total T-score: -3.4. Prior reading in July 2022 was also -3.4. IMPRESSION: Bone mineral density measures in the osteoporosis range. Fracture risk remains high. Note: Any spine fracture indicates 5x risk for subsequent spine fracture and 2x risk for subsequent h ip fracture. World Health Organization criteria for BMD interpretation classify patients: Normal...... T- Score at or above -1.0 Osteopenic... T- Score between -1.0 and -2.5 Osteoporosis... T-Score at or below -2.5
== END 2024-08-03 03:19 ==
LOC: DI 02:59
PROVIDERS: PCP Nurse Practitioner Family; Visit Provider Nurse Practitioner Family
DX: R01.1 Cardiac murmur, unspecified (principal); Z12.31 Encounter for screening mammogram for malignant neoplasm of breast; M85.89 Other specified disorders of bone density and structure, multiple sites
CPT/HCPCS: 77063; 77067; 77080; 93306

== ENCOUNTER 2024-08-17 01:38 | Outpatient (CLI) | payer MEDICARE, SELFPAY ==
[2024-08-17 08:12] LABS: Anion Gap 6.5 mmol/L (3-11); BUN 18 mg/dL (7-18); CO2 32.5 mmol/L (21.0-32.0); CREATININE 0.8 mg/dL (0.55-1.02); Calcium 9.1 mg/dL (8.5-10.1); Chloride 102 mmol/L (98-107); Estimated GFR 78.72 (mL/min/1.73m2); Glucose 93 mg/dL (74-106); Potassium 3.7 mmol/L (3.5-5.1); Sodium 141 mmol/L (136-145)
[2024-08-18 09:55] LABS: Hep B Surface Ab Positive (See Note); Hepatitis B Core Antibody Negative (Negative); Hepatitis B Surface Antigen Negative (Negative)
[2024-08-18 10:19] LABS: HIV-1/2 Ag & Ab Screen Negative (Negative)
== END 2024-08-17 01:39 | disposition home or self-care (01) ==
PROVIDERS: PCP Nurse Practitioner Family; Visit Provider Nurse Practitioner Family
DX: Z11.4 Encounter for screening for human immunodeficiency virus [HIV] (principal); I10 Essential (primary) hypertension; Z11.59 Encounter for screening for other viral diseases
CPT/HCPCS: 36415; 80048; 86704; 86706; 87340; 87389

== ENCOUNTER 2024-09-13 00:53 | Outpatient (CLI) | payer MEDICARE, SELFPAY ==
--- NOTE | 2024-09-13 06:45 | DI.RAD_ITS ---
Exam(s) XR FOOT RT COMPLETE EXAM: XR FOOT RT COMPLETE CLINICAL HISTORY: Right foot pain,M79.671. TECHNIQUE: 2D digital imaging was performed. Three views. COMPARISON: CR XR FOOT RT COMPLETE from 01/05/2023 CR XR FOOT LT COMPLETE from 09/13/2024 FINDINGS: BONES: No acute fracture is present. Old fracture of the 4th metatarsal neck. No bony destructive l esion is seen. JOINTS: No dislocation present. Hammertoe deformities, greatest at the 3rd toe. Valgus angulation a t the 3rd metatarsal phalangeal joint. No significant degenerative changes. SOFT TISSUE: Normal. IMPRESSION: Hammertoe deformities. Valgus angulation at the 3rd metatarsal phalangeal joint. DATA REPOSITORY: RADIATION DOSE DELIVERED:
--- NOTE | 2024-09-13 06:45 | DI.RAD_ITS ---
Exam(s) XR FOOT LT COMPLETE EXAM: XR FOOT LT COMPLETE CLINICAL HISTORY: Left foot pain,M79.672. TECHNIQUE: 2D digital imaging was performed. Three views. COMPARISON: CR XR FOOT RT COMPLETE from 01/05/2023 FINDINGS: BONES: No acute fracture is present. No bony destructive lesion is seen. JOINTS: No dislocation present. Deformities of the 2nd through 4th toes. Valgus angulation at the 3rd and 4th toes. Mild intertarsal degenerative changes. SOFT TISSUE: Normal. IMPRESSION: Mild intertarsal degenerative changes. Hammertoe deformities. DATA REPOSITORY: RADIATION DOSE DELIVERED:
== END 2024-09-13 01:13 ==
PROVIDERS: PCP Nurse Practitioner Family; Visit Provider Podiatrist
DX: M79.671 Pain in right foot (principal); M79.672 Pain in left foot
CPT/HCPCS: 73630

== ENCOUNTER → 2024-10-25 11:01 | Outpatient (BNVA) | payer MEDICARE, SELFPAY | PROVIDERS: PCP Nurse Practitioner Family; Referring Provider Nurse Practitioner Family; Visit Provider Podiatrist | DX: M79.671 Pain in right foot (principal); M79.672 Pain in left foot; M20.41 Other hammer toe(s) (acquired), right foot; M20.42 Other hammer toe(s) (acquired), left foot | CPT/HCPCS: 99213 ==

== ENCOUNTER → 2025-04-18 09:49 | Outpatient (BNVA) | payer MEDICARE, SELFPAY | PROVIDERS: PCP Nurse Practitioner Family; Referring Provider Nurse Practitioner Family; Visit Provider Physical Therapy Assistant | DX: D48.5 Neoplasm of uncertain behavior of skin (principal) | CPT/HCPCS: 99213 ==

== ENCOUNTER 2025-05-11 07:55 | Outpatient (REF) | payer MEDICARE, SELFPAY ==
--- NOTE | 2025-05-11 08:38 | SKI_PTH ---
PATIENT: Carina Martinez LOC: [facility] U#:[id number] AGE/SX: 74/F ROOM: RE05/11/[address]: Елена Worthy MD : 1950 BED: DIS: 05/11/2025 SPEC #: [id number] RECD: 05/11/25 12:41 STATUS: LEON ROBERTO #: [id number] TASHI: 05/11/25 08:[address]: Елена Worthy DEPT: Surgical Specimen RECD BY: Lashonda De Leon ENTERED: 05/11/25 12:42 SP TYPE: CYRUS JIMENEZ DR: GARIMA Moya Tissues: 1 - SKIN BIOPSY(SHAVE/PUNCH) Procedures: SKIN LEVEL 4 Comments: [id number]
== END 2025-05-11 07:56 | disposition home or self-care (01) ==
LOC: LBN 07:55
PROVIDERS: PCP Nurse Practitioner Family; Referring Provider Nurse Practitioner Family; Visit Provider Surgery
DX: D23.71 Other benign neoplasm of skin of right lower limb, including hip (principal)
CPT/HCPCS: 88305

== ENCOUNTER → 2025-05-11 07:55 | Outpatient (BNVA) | payer MEDICARE, SELFPAY | PROVIDERS: PCP Nurse Practitioner Family; Referring Provider Nurse Practitioner Family; Visit Provider Surgery | DX: D23.71 Other benign neoplasm of skin of right lower limb, including hip (principal) | CPT/HCPCS: 11402 ==

== ENCOUNTER 2025-06-06 10:12 | Emergency (ER) | payer MEDICARE, SELFPAY ==
[2025-06-06] VITALS (35 sets, daily range): BP systolic 138–198; BP diastolic 62–97; PULSE 52–78; RESP 9–20; TEMP 36.5; O2SAT 95–100
--- NOTE | 2025-06-06 10:00 | RT.EKG_ITS ---
APPROVED REPORT Exam: Resting ECG Reason for Exam: dizzy Patient Location: E HR:62 bpm ECG Measurements Heart Rate 62 AXIS GA 177 P -1 QRSd 125 QRS -40 QT 446 T 28 QTc 452 Conclusion Sinus rhythm...normal P axis, V-rate 60- 99 IVCD, consider RBBB...QRSd>120mS, terminal axis(90,270) Left ventricular hypertrophy...multiple LVH criteria
[2025-06-06 10:47] LABS: Abs Immature Grans 0.02 10^3/uL (0.0-0.06); HCT 37.6 % (36.0-46.0); HGB 13.2 g/dL (11.2-15.7); Immature Grans % 0.5 %; MCH 31.2 pg (27.0-33.0); MCHC 35.1 % (32.0-36.0); MCV 89 fL (80-95); MPV 10.1 fL (8.0-11.0); Platelet Count 268 10^3/uL (130-400); RBC 4.23 10^6/uL (3.93-5.22); RDW 11.6 % (11.7-14.6); RDW-SD 37.1 fL; WBC 4.39 10^3/uL (4.4-10.8)
[2025-06-06 11:04] LABS: ALT 24 U/L (14-59); AST 16 U/L (15-37); Albumin 4.0 g/dL (3.4-5.0); Alkaline Phosphatase 50 U/L (46-116); Anion Gap 9.4 mmol/L (3-11); BUN 24 mg/dL (7-18); Bilirubin, Total 0.3 mg/dL (0.2-1.0); CO2 30.6 mmol/L (21.0-32.0); Calcium 9.5 mg/dL (8.5-10.1); Chloride 98 mmol/L (98-107); Estimated GFR 78.24 (mL/min/1.73m2); Glucose 90 mg/dL (74-106); Magnesium 2.0 mg/dL (1.8-2.4); Potassium 4.0 mmol/L (3.5-5.1); Sodium 138 mmol/L (136-145); Total Protein 7.4 g/dL (6.4-8.2)
[2025-06-06] MEDS: Normal Saline - Diluent 50 ML VIAL IJ (11:23)
[2025-06-06] MEDS: Normal Saline Flush 10 ML SYR IVP (11:24)
[2025-06-06] MEDS: Omnipaque 350 MG/ML 500 ML BTL-Imaging package IJ (11:24)
--- NOTE | 2025-06-06 11:40 | DI.CT_ITS ---
Exam(s) CT BRAIN NECK CTA EXAM: CT BRAIN NECK CTA CLINICAL HISTORY: intermittent balance issues. TECHNIQUE: Imaging Protocol: Axial CT angiography was performed with multi- slice acquisition and multi-planar and/or 3D reconstructions. CONTRAST MATERIAL: Intravenous: Contrast contrast volume:structured data in ml mL COMPARISON: No exams were available for comparison FINDINGS: CT Head W/O and W: Ventricles and Extra axial spaces: Normal in size and morphology for the patient's age. There is a calcified parasagittal extra-axial mass along the left parietal convexity most consistent with a meningioma. It measures 5.3 x 4.5 x 5.3 cm. Hemorrhage: None. Cerebral parenchyma: There is no evidence of an acute territorial infarct. Midline shift: None. Brainstem/Cerebellum: Normal. Calvarium: Normal. Visualized Paranasal sinuses/Mastoids: Clear. Soft Tissues: Unremarkable. Enhancement: Unremarkable. Pituitary gland: Note is made of an empty sella. CTA Neck W: Common Carotid: Right: No dissection, occlusion or significant stenosis. There is mild atherosclerotic calcification at the origin of the common carotid artery. Left: No dissection, occlusion or significant stenosis. External Carotid: Right: No occlusion or significant stenosis. Left: No occlusion or significant stenosis. Internal Carotid: Right: No dissection, occlusion or significant stenosis. Left: No dissection, occlusion or significant stenosis. Vertebral Artery: There is a dominant right vertebral artery. Right: No dissection, occlusion or significant stenosis. Left: No dissection, occlusion or significant stenosis. Lung Apices: Normal. Bones: Within normal limits for the patient's age. Soft Tissues: Normal. Thyroid gland: There are thyroid nodules bilaterally. The largest is in the left lobe and measures 1.7 x 1 cm. Nonemergent thyroid ultrasound is recommended for further evaluation. CTA Brain W: Internal Carotid Arteries: Mild atherosclerotic calcification is present. There is no aneurysm, occlusion or significant stenosis. Anterior Cerebral Arteries: The left anterior cerebral artery arises via the anterior communicating artery. Right: No aneurysm, occlusion or significant stenosis. Left: No aneurysm, occlusion or significant stenosis. Middle Cerebral Arteries: Right: No aneurysm, occlusion or significant stenosis. Left: No aneurysm, occlusion or significant stenosis. Posterior Cerebral Arteries: Right: No aneurysm, occlusion or significant stenosis. Left: No aneurysm, occlusion or significant stenosis. Vertebral Arteries: Right: No aneurysm, occlusion or significant stenosis. Left: No aneurysm, occlusion or significant stenosis. Basilar Artery: No aneurysm, occlusion or significant stenosis. IMPRESSION: 1. No large vessel occlusion or significant stenosis on the CT angiography of the head. 2. No acute intracranial process. 3. No occlusion or significant stenosis on the CT angiography of the neck. 4. Multinodular thyroid gland. Nonemergent thyroid ultrasound is recommended for further evaluation. RADIATION DOSE DELIVERED: 2,072.28mGy.cm Total DLP DATA REPOSITORY: All CT scans at this facility are submitted to the National Radiology Data Registry (NRDR) Dose Index Registry (DIR) with the [employer] (ACR). RADIATION OPTIMIZATION: All CT scans at this facility use at least one of these dose optimization techniques: automated exposure control; mA and/or kV adjustment per patient size (includes targeted exams where dose is matched to clinical indication); or iterative reconstruction.
[2025-06-06 12:14] LABS: Troponin I 6 ng/L (<or=51)
[2025-06-06 12:18] LABS: Troponin I 6 ng/L (<or=51)
[2025-06-06] MEDS: Meclizine 25 MG TAB PO (12:56)
--- NOTE | 2025-06-06 14:15 | DI.MRI_ITS ---
Exam(s) MR BRAIN WO EXAM: MR BRAIN WO CLINICAL HISTORY: off balance TECHNIQUE: Multiplanar multisequence MRI of the brain was performed. COMPARISON: CT CT BRAIN NECK CTA from 06/06/2025 FINDINGS: VENTRICLES AND EXTRA AXIAL SPACES: Normal in size and morphology for the patient's age. MIDLINE SHIFT: None. CEREBRAL PARENCHYMA: No focus of restricted diffusion to suggest acute infarct. No space-occupying lesion identified. Mild to moderate atrophy consistent with the patient's age. Mild to moderate scattered foci of high signal in the white matter consistent with sequela of chronic microvascular disease. BRAINSTEM/CEREBELLUM: Normal. VISUALIZED PARANASAL SINUSES: Clear. MASTOIDS:Clear. Vasculature: Normal flow void. PITUITARY GLAND: Partially empty sella. ORBITS: Unremarkable. Calvarium: Previously noted calcification seen adjacent to the superior left frontoparietal skull is not discretely visualized. IMPRESSION: Atrophy and microvascular changes. No evidence of acute infarct. DATA REPOSITORY:
--- NOTE | 2025-06-06 14:17 | ED.GENADUL_ITS ---
Discharge Plan Disposition Patient Disposition: Home Condition: Stable Discharge Details Clinical Impression: Thyroid nodule incidentally noted on imaging study, Dizziness Primary Care Provider: Kathleen Brambila ED Provider: Silvestre Gimenez Home Meds and New Rx's Prescriptions: Continued melatonin 3 mg capsule 3 mg PO HS PRN cetirizine 10 mg tablet 10 mg PO DAILY PRN (Reason: allergy symptoms) Qty: 90 3RF omega-3 fatty acids [Fish Oil Concentrate] 1,000 mg capsule 1,000 mg PO DAILY alendronate 70 mg tablet 70 mg PO QWEEK Qty: 13 3RF hydrochlorothiazide 25 mg tablet 25 mg PO DAILY Qty: 90 3RF citalopram [Celexa] 20 mg tablet 30 mg PO DAILY Qty: 135 3RF ibuprofen 200 mg tablet 200 mg PO BID PRN (Reason: usualy hip pain PRN) calcium carbonate-vitamin D3 [Calcium 600 + D(3)] 1 EACH tablet 1 ea PO BID multivitamin [One Daily Multivitamin] 1 EACH tablet 1 ea PO DAILY ascorbic acid (vitamin C) 500 mg tablet 500 mg PO DAILY PRN Rx Instructions: Uses seasonally ferrous sulfate 325 mg (65 mg iron) tablet 325 mg PO DAILY Qty: 90 3RF Rx Instructions: Take 1 tablet daily cholestyramine (with sugar) 4 gram powder 1 pwd PO DAILY Qty: 378 12RF Rx Instructions: administer w/meal; avoid other meds within 1hr before or 4-6hr after dose. 1-2 doses a day to prevent diarrhea Discharge Instructions Instructions: Dizziness, Adult ED Additional Instructions: Please follow-up with your primary care physician. Please be sure to discuss incidental findings of thyroid nodules noted on imaging today. Please monitor your blood pressure closely over the next week and keep a log. Should blood pressure remain elevated, you may need modification to your antihypertensive medication regimen. Please discuss with your primary care physician. Please avoid operating motor vehicles and heavy machinery over the next week and until symptoms completely resolve. Return to the emergency department immediately for any worsening or new concerning symptoms. Referrals: Kathleen Brambila NP [Primary Care Provider, Medicine] [facility] General Mode of arrival: ambulatory . Date/Time Provider Initiated Documentation: 06/06/25 10:28 . Limitations to Documentation: no limitations . Information obtained by: patient . HPI Narrative: HISTORY OF PRESENT ILLNESS 74-year-old female with no significant past medical history presenting with dizziness. She is accompanied by her . The patient reports experiencing dizziness, which she describes as a sensation of instability rather than vertigo or fainting. The onset of these symptoms was sudden, occurring while she was walking her dog downhill. She recalls feeling unsteady but does not report any loss of consciousness. She started to develop symptoms on 06/03/25. Her symptoms have been fluctuating, with periods of improvement followed by sudden episodes of dizziness. She notes that her symptoms tend to worsen in the evenings when she is fatigued. She describes her dizziness as a feeling of being off-balance and reports no associated confusion, headache, speech difficulties, weakness, numbness, or changes in vision, hearing, smell, or taste. She also reports no rashes, chest pain, shortness of breath, nausea, vomiting, or diarrhea. She has no history of similar episodes, strokes, brain issues, heart disease, or cancer. She mentions a recent episode of back pain in the shoulder blade area, which she attributes to gardening activities. Patient does note remotely she had vertigo and had been prescribed meclizine. Related Data Home Medications ?Medication ?Instructions ?Recorded ?Confirmed calcium 600 mg (as 1 ea PO BID 06/28/13 5 carbonate)-vitamin D3 10 mcg (400 unit) tablet (Calcium 600 + D(3)) multivitamin (One Daily 1 ea PO DAILY 09/26/1506/06 Multivitamin tablet) omega-3 fatty acids 1,000 mg 1,000 mg PO DAILY 0 06/06/25 capsule (Fish Oil Concentrate) melatonin 3 mg capsule 3 mg PO HS PRN 05/05/2105/23 ascorbic acid (vitamin C) 500 mg 500 mg PO DAILY PRN 1 09/27/21 06/06/25 tablet cetirizine 10 mg tablet 10 mg PO DAILY PRN allergy 1 09/27/21 06/06/25 symptoms #90 tab-caps ferrous sulfate 325 mg (65 mg 325 mg PO DAILY #90 tabs 09/11/22 06/06/25 iron) tablet alendronate 70 mg tablet 70 mg PO QWEEK #13 tabs 12/0 05/1606/06/25 citalopram 20 mg tablet (Celexa) 30 mg (1.5 x 20 mg) P O DAILY #135 08/03/24 06/06/25 tabs hydrochlorothiazide 25 mg tablet 25 mg PO DAILY #90 ta bs 08/03/24 06/06/25 cholestyramine (with sugar) 4 gram 1 pwd PO DAILY #378 grams 11/02/24 06/06/25 oral powder ibuprofen 200 mg tablet 200 mg PO BID PRN usualy hip pain 01/29/25 06/06/25 PRN Previous Rx's ?Medication ?Instructions ?Recorded cetirizine 10 mg tablet 10 mg PO DAILY PRN allergy 1 09/27/21 symptoms #90 tab-caps ferrous sulfate 325 mg (65 mg 325 mg PO DAILY #90 tabs 09/11/22 iron) tablet alendronate 70 mg tablet 70 mg PO QWEEK #13 tabs 05/16 citalopram 20 mg tablet (Celexa) 30 mg (1.5 x 20 mg) P O DAILY #135 08/03/24 tabs hydrochlorothiazide 25 mg tablet 25 mg PO DAILY #90 ta bs 08/03/24 cholestyramine (with sugar) 4 gram 1 pwd PO DAILY #378 grams 11/02/24 oral powder Allergies Allergy/AdvReac Type Severity Reaction Status Date / Time No Known Allergies Allergy Verified 06/06/25 10:23 General Stated Complaint: Dizzy/Sync BELINDA: 3 Review of Systems All systems reviewed & are unremarkable except as noted in HPI and below Constitutional Constitutional: Denies fever(s) Exam Const General: cooperative and no acute distress [facility] Head: atraumatic Mouth: moist mucous membranes Eyes Sclera: normal sclerae Pupils: PERRL and normal by confrontation EOM: EOM intact bilaterally Other: No nystagmus Resp Auscultation: clear to auscultation bilaterally, no rales, no rhonchi and no wheezes Cardio Rate: regular rate and not tachycardic Rhythm: regular rhythm GI Palpation: soft, not firm, no guarding, no masses, not rigid and nontender Skin General skin exam: no rashes or lesions noted Neuro General: patient alert, patient awake, patient oriented x3 and tone normal Cranial Nerves: CN's II-XI intact bilaterally Cognition: normal cognition Speech: speech normal Motor: strength 5/5 throughout Sensory Exam: no sensory deficits noted Coordination: oleiym-sm-[id number] test normal, efwe-zx-[id number] test normal, Romberg test normal and rapid alternating movement UE normal (nl) Extrem General: no edema Psych Appearance: grossly normal Mental Status: mental status grossly normal Speech and Movement: speech and movement normal Course Vital Signs Vital signs: Vital Signs Temperature 36.5 C 06/06/25 10:13 Pulse 62 06/06/25 10:13 Respiratory Rate 20 06/06/25 10:13 Blood Pressure 139/80 06/06/25 10:13 Pulse Oximetry 98 06/06/25 10:13 Temperature 36.5 C 06/06/25 10:13 Temperature Source Oral 06/06/25 10:13 Pulse 58 L 06/06/25 13:20 Pulse 57 L 06/06/25 13:20 Respiratory Rate 11 L 06/06/25 13:20 Respiratory Effort Normal, Non-Labored 06/06/25 10:44 Respiratory Depth Normal 06/06/25 10:44 Respiratory Pattern Normal 06/06/25 10:44 Blood Pressure 162/73 H 06/06/25 13:16 Blood Pressure Mean 104 06/06/25 13:16 Blood Pressure Position Sitting 06/06/25 10:13 Pulse Oximetry 99 06/06/25 13:20 Oxygen Delivery Method Room Air 06/06/25 10:13 Oxygen Flow Rate 0 06/06/25 10:13 Pain Level 0 06/06/25 10:13 Lab/Test Results Lab/Test Results: Laboratory Tests Range/Units 06/06/25 06/06/25 06/06/25 10:41 11:45 11:50 WBC (4.4-10.8) 10^3/uL 4.39 L RBC (3.93-5.22) 10^6/uL 4.23 Hgb (11.2-15.7) g/dL 13.2 Hct (36.0-46.0) % 37.6 MCV (80-95) fL 89 MCH (27.0-33.0) pg 31.2 MCHC (32.0-36.0) % 35.1 RDW (11.7-14.6) % 11.6 L Plt Count (130-400) 10^3/uL 268 MPV (8.0-11.0) fL 10.1 Immature Gran % % 0.5 Neutrophils % % 59.9 Lymphocytes % % 27.8 Monocytes % % 7.5 Eosinophils % % 3.2 Basophils % % 1.1 Nucleated RBC % (0.0-0.3) % 0.0 Absolute Neutrophils (1.2-6.7) 10^3/uL 2.63 Absolute Lymphocytes (1.2-3.4) 10^3/uL 1.22 Absolute Monocytes (0.1-0.8) 10^3/uL 0.33 Absolute Eosinophils (0.0-0.7) 10^3/uL 0.14 Absolute Basophils (0.0-0.2) 10^3/uL 0.05 Sodium (136-145) mmol/L 138 Potassium (3.5-5.1) mmol/L 4.0 Chloride (98-107) mmol/L 98 Carbon Dioxide (21.0-32.0) mmol/L 30.6 Anion Gap (3-11) mmol/L 9.4 BUN (7-18) mg/dL 24 H Creatinine (0.55-1.02) mg/dL 0.8 Est GFR (CKD-EPI 2020) (mL/min/1.73m2) 78.24 Glucose (74-106) mg/dL 90 Calcium (8.5-10.1) mg/dL 9.5 Magnesium (1.8-2.4) mg/dL 2.0 Total Bilirubin (0.2-1.0) mg/dL 0.3 AST (15-37) U/L 16 ALT (14-59) U/L 24 Alkaline Phosphatase (46-116) U/L 50 Troponin I (<or=51) ng/L 6 6 Cancelled Total Protein (6.4-8.2) g/dL 7.4 Albumin (3.4-5.0) g/dL 4.0 Range/Units 06/06/25 14:53 WBC (4.4-10.8) 10^3/uL RBC (3.93-5.22) 10^6/uL Hgb (11.2-15.7) g/dL Hct (36.0-46.0) % MCV (80-95) fL MCH (27.0-33.0) pg MCHC (32.0-36.0) % RDW (11.7-14.6) % Plt Count (130-400) 10^3/uL MPV (8.0-11.0) fL Immature Gran % % Neutrophils % % Lymphocytes % % Monocytes % % Eosinophils % % Basophils % % Nucleated RBC % (0.0-0.3) % Absolute Neutrophils (1.2-6.7) 10^3/uL Absolute Lymphocytes (1.2-3.4) 10^3/uL Absolute Monocytes (0.1-0.8) 10^3/uL Absolute Eosinophils (0.0-0.7) 10^3/uL Absolute Basophils (0.0-0.2) 10^3/uL Sodium (136-145) mmol/L Potassium (3.5-5.1) mmol/L Chloride (98-107) mmol/L Carbon Dioxide (21.0-32.0) mmol/L Anion Gap (3-11) mmol/L BUN (7-18) mg/dL Creatinine (0.55-1.02) mg/dL Est GFR (CKD-EPI 2020) (mL/min/1.73m2) Glucose (74-106) mg/dL Calcium (8.5-10.1) mg/dL Magnesium (1.8-2.4) mg/dL Total Bilirubin (0.2-1.0) mg/dL AST (15-37) U/L ALT (14-59) U/L Alkaline Phosphatase (46-116) U/L Troponin I (<or=51) ng/L Cancelled Total Protein (6.4-8.2) g/dL Albumin (3.4-5.0) g/dL Medical Decision Making ASSESSMENT AND PLAN Initial Assessment: 74-year-old female here with dizziness started Wednesday while walking dog. Described as instability, not vertigo or presyncope. Worsens with movement, improves with rest. Patient seems neurologically intact on exam. She does have the sense of unsteadiness with ambulation. Hemodynamically stable on arrival. Differential Diagnosis: - CVA posterior circulation - Electrolyte imbalance: Check electrolyte levels. - Less likely cardiogenic etiology. ED Course: - CT scan of brain and neck vessels with contrast was reviewed and interpreted by radiology: 1. No large vessel occlusion or significant stenosis on the CT angiography of the head. 2. No acute intracranial process. 3. No occlusion or significant stenosis on the CT angiography of the neck. 4. Multinodular thyroid gland. Nonemergent thyroid ultrasound is recommended for further evaluation. - Labs reviewed and nondiagnostic. Troponin negative x 2. - EKG performed. Reviewed and interpreted by me: Please see report, sinus rhythm 62 bpm, right bundle branch block - Patient was given meclizine and reassessed. She notes continued sensation of lack of balance. Plan to proceed with more advanced imaging and will obtain MRI of the brain to assess for cerebellar lesion including CVA not apparent on CTA. - On reassessment, patient's blood pressure is elevated 162/73. This may be contributing to presentation today. Patient has been taking her hypertensive as prescribed and may need medication adjustment. Clinical Impression: - Dizziness - Thyroid nodule This document was written with the assistance of RAVINDRA Smith. The patient consented to its use. Lab Data Lab results reviewed: Yes I reviewed the patient's lab results. Labs: Laboratory Tests Range/Units 06/06/25 06/06/25 06/06/25 10:41 11:45 11:50 WBC (4.4-10.8) 10^3/uL 4.39 L RBC (3.93-5.22) 10^6/uL 4.23 Hgb (11.2-15.7) g/dL 13.2 Hct (36.0-46.0) % 37.6 MCV (80-95) fL 89 MCH (27.0-33.0) pg 31.2 MCHC (32.0-36.0) % 35.1 RDW (11.7-14.6) % 11.6 L Plt Count (130-400) 10^3/uL 268 MPV (8.0-11.0) fL 10.1 Immature Gran % % 0.5 Neutrophils % % 59.9 Lymphocytes % % 27.8 Monocytes % % 7.5 Eosinophils % % 3.2 Basophils % % 1.1 Nucleated RBC % (0.0-0.3) % 0.0 Absolute Neutrophils (1.2-6.7) 10^3/uL 2.63 Absolute Lymphocytes (1.2-3.4) 10^3/uL 1.22 Absolute Monocytes (0.1-0.8) 10^3/uL 0.33 Absolute Eosinophils (0.0-0.7) 10^3/uL 0.14 Absolute Basophils (0.0-0.2) 10^3/uL 0.05 Sodium (136-145) mmol/L 138 Potassium (3.5-5.1) mmol/L 4.0 Chloride (98-107) mmol/L 98 Carbon Dioxide (21.0-32.0) mmol/L 30.6 Anion Gap (3-11) mmol/L 9.4 BUN (7-18) mg/dL 24 H Creatinine (0.55-1.02) mg/dL 0.8 Est GFR (CKD-EPI 2020) (mL/min/1.73m2) 78.24 Glucose (74-106) mg/dL 90 Calcium (8.5-10.1) mg/dL 9.5 Magnesium (1.8-2.4) mg/dL 2.0 Total Bilirubin (0.2-1.0) mg/dL 0.3 AST (15-37) U/L 16 ALT (14-59) U/L 24 Alkaline Phosphatase (46-116) U/L 50 Troponin I (<or=51) ng/L 6 6 Cancelled Total Protein (6.4-8.2) g/dL 7.4 Albumin (3.4-5.0) g/dL 4.0 Range/Units 06/06/25 14:53 WBC (4.4-10.8) 10^3/uL RBC (3.93-5.22) 10^6/uL Hgb (11.2-15.7) g/dL Hct (36.0-46.0) % MCV (80-95) fL MCH (27.0-33.0) pg MCHC (32.0-36.0) % RDW (11.7-14.6) % Plt Count (130-400) 10^3/uL MPV (8.0-11.0) fL Immature Gran % % Neutrophils % % Lymphocytes % % Monocytes % % Eosinophils % % Basophils % % Nucleated RBC % (0.0-0.3) % Absolute Neutrophils (1.2-6.7) 10^3/uL Absolute Lymphocytes (1.2-3.4) 10^3/uL Absolute Monocytes (0.1-0.8) 10^3/uL Absolute Eosinophils (0.0-0.7) 10^3/uL Absolute Basophils (0.0-0.2) 10^3/uL Sodium (136-145) mmol/L Potassium (3.5-5.1) mmol/L Chloride (98-107) mmol/L Carbon Dioxide (21.0-32.0) mmol/L Anion Gap (3-11) mmol/L BUN (7-18) mg/dL Creatinine (0.55-1.02) mg/dL Est GFR (CKD-EPI 2020) (mL/min/1.73m2) Glucose (74-106) mg/dL Calcium (8.5-10.1) mg/dL Magnesium (1.8-2.4) mg/dL Total Bilirubin (0.2-1.0) mg/dL AST (15-37) U/L ALT (14-59) U/L Alkaline Phosphatase (46-116) U/L Troponin I (<or=51) ng/L Cancelled Total Protein (6.4-8.2) g/dL Albumin (3.4-5.0) g/dL PFSH All Active Problems (Updated 06/06/25 @ 14:35 by Silvestre Gimenez MD) Dizziness (Acute) Thyroid nodule incidentally noted on imaging study (Acute) Skin lesion (Acute) Acquired hammertoes of both feet (Acute) ODETTE (obstructive sleep apnea) (Chronic) CPAP Essential hypertension (Chronic) Hyperlipidemia (Chronic) Major depressive disorder, recurrent (Chronic) Osteoporosis (Chronic) Dexa 2021; completed 5 years of fosamax years ago, restarted 2021. Hx of fractures Chronic diarrhea (Chronic) Internal hemorrhoids (Chronic) Iron deficiency (Chronic) Carpal tunnel syndrome, left (Chronic) Rosacea, acne (Chronic) Medical History GERD (gastroesophageal reflux disease) Choledochal cyst Surgical removal and reconstruction when she was in her 30s as well as cholecystectomy Surgical History History of colonoscopy (~10/2023) History of incisional hernia repair Status post abdominal hysterectomy Status post breast biopsy Status post cholecystectomy Status post tonsillectomy and adenoidectomy Family History Mother , 90s Heart disease Skin cancer Hypertension Stroke Father , 90s Hyperlipidemia Asthma Heart disease Depression Prostate cancer Sister Hypertension Hyperlipidemia Sister Hypothyroidism Hypertension Paternal Grandfather , 85+ GI cancer Paternal Grandmother , 40s Meningitis Maternal Grandfather Melanoma Maternal Grandmother Stroke Hypertension Skin cancer Heart disease Social History Smoking/Tobacco Use Status: Never Second Hand Exposure: Yes Smoking risk assessment performed?: Yes Alcohol Intake: current Alcohol Intake frequency: holidays/special occasions only Alcohol type: wine Drug use: Never Substance use type: does not use Adopted: No Caregiver/Support person: No Foster care: No Household members: spouse Housing: house Communication Needs: Corrective Lenses Education Level: college Do you need help understanding health information?: Rarely current occupation: retired nurse Pets and animals: Yes Pets and animals: dog(s) Sexually active: No Do you think of yourself as: straight/heterosexual What is your relationship status?: How often do you talk on the phone with friends or family?: twice per week How often do you get together with friends or relatives?: twice per week How often do you attend zoroastrian or shinto services?: 4 or more times per year Do you belong to any clubs or organized social groups?: yes Panel score (0-1 are the most socially isolated patients): 4 Duration: 45-60 minutes/day Frequency: 1-2 times per week Shirley/Amish: Church Special shirley needs: No Agree to transfusion: Yes Seatbelt use: always Helmet use: No Drive intox or ride w/intox local [place] truck driver: No Working smoke detector in home: Yes Carbon monox detector in home: Yes Firearms in home: No Do you feel safe at home: Yes Do you feel safe in your relationship?: Yes Victim of physical abuse: No Victim of emotional abuse: No Victim of sexual abuse: No
== END 2025-06-06 16:30 | disposition home or self-care (01) ==
PROVIDERS: Emergency Provider Student in an Organized Health Care Education/Training Program; PCP Nurse Practitioner Family
DX: R42 Dizziness and giddiness (principal); E04.1 Nontoxic single thyroid nodule
CPT/HCPCS: 99285; 99283; 36415; 70496; 70498; 80053; 93005; 70551; 83735; 84484; 85025; 93010

== ENCOUNTER 2025-06-19 00:53 | Outpatient (CLI) | payer MEDICARE, SELFPAY ==
--- NOTE | 2025-06-19 06:15 | DI.US_ITS ---
Exam(s) US THYROID EXAM: US THYROID CLINICAL HISTORY: multinodular thyroid,E04.2. TECHNIQUE: Ultrasound thyroid performed using standard protocol. COMPARISON: CT CT BRAIN NECK CTA from 06/06/2025 FINDINGS: RIGHT THYROID LOBE: Measures 1.6 cm AP x 1.9 cm wide x 3.5 cm craniocaudal There is a small 6 mm benign colloid cyst in the right lobe. No solid lesions in the right lobe ISTHMUS: Normal thickness. There are no nodules in the isthmus. LEFT THYROID LOBE: Measures 1.5 cm AP x 1.6 wide x 3.2 cm craniocaudal There is a solitary solid nodule in the left lobe which corresponds to finding on recent CT scan. Characteristics of this nodule are as follows: Size: Measures 1.8 x 1.4 x 1.7 cm Composition: Solid-2 points Echogenicity: Isoechoic-1 points Shape: Wider than taller in the transverse plane-0 points Margin: Smooth-0 points Echogenic Foci: Contains a single macro calcification-1 points Total points for this nodule: 4 ACR Ti-Rads Category: 4 This TR 4 level nodule requires biopsy as it measures greater than 1.5 cm. LYMPH NODES: There is no significant adenopathy. IMPRESSION: 1. There is a solitary 18 x 14 x 17 mm solid nodule in left thyroid lobe which is a TR 4 level nodule, therefore qualifying for ultrasound-guided FNA as it measures greater than 1.5 cm. 2. There is no significant lymphadenopathy. DATA REPOSITORY:
== END 2025-06-19 01:13 ==
LOC: DI 00:53
PROVIDERS: PCP Nurse Practitioner Family; Visit Provider Nurse Practitioner Family
DX: E04.2 Nontoxic multinodular goiter (principal)
CPT/HCPCS: 76536